=== PATIENT | male | born 1945 | race Caucasian/White ===

== ENCOUNTER 2021-12-16 06:36 | Outpatient (REF) | payer MEDICARE, SELFPAY ==
[2021-12-16 06:58] LABS: MANUAL DIFF FLAG NO
[2021-12-16 07:41] LABS: Basophils Percent Auto 0.4 % (0-2); Eosinophils Absolute Auto 0.3 X10*3/uL (0.0-0.4); Eosinophils Percent Auto 4.5 % (0-4); Hematocrit 40.9 % (42.0-52.0); Hemoglobin 14.1 g/dl (14.0-18.0); Imm Gran Abs Auto 0.03 X10*3/uL (0.00-0.03); Imm Gran Pct Auto 0.4 % (0.0-0.4); Lymphocytes Absolute Auto 2.1 X10*3/uL (1.2-4.9); Mean Corpuscular HGB Conc 34.5 g/dl (31.0-36.0); Mean Corpuscular Hemoglobin 32.3 pg (27.0-33.0); Mean Corpuscular Volume 93.6 fL (80.0-98.0); Mean Platelet Volume 9.8 fL (9.4-12.4); Monocytes Absolute Auto 0.7 X10*3/uL (0.1-1.2); Monocytes Percent Auto 9.2 % (2-11); Neutrophils Absolute Auto 4.5 x10*3/uL (2.0-8.3); Neutrophils Percent Auto 58.5 % (45-73); Platelet Count 220 X10*3/uL (160-400); Red Blood Count 4.37 X10*6/uL (4.60-5.80); Red Cell Distribution Width 13.2 % (11.0-16.0); White Blood Count 7.6 X10*3/uL (4.8-10.8)
[2021-12-16 08:24] LABS: Alanine Aminotransferase 15 U/L (0-40); Albumin Level 3.7 g/dL (3.5-5.0); Alkaline Phosphatase 68 U/L (39-117); Anion Gap 12 (12-20); Aspartate Amino Transferase 21 U/L (5-37); Bilirubin Total 0.6 mg/dL (0.0-1.0); Blood Urea Nitrogen 16 mg/dL (9-16); Calcium 9.2 mg/dL (8.4-10.2); Carbon Dioxide 28 mmol/L (22-29); Chloride 97 mmol/L (96-108); Cholesterol 157 mg/dL; Estimated Glomerular Filt Rate > 60; Glucose Fasting 109 mg/dL (60-99); HDL Cholesterol 68 mg/dL; LDL Cholesterol Calculated 81 mg/dl; Potassium 5.7 mmol/L (3.3-5.1); Sodium 131 mmol/L (135-145); Total Protein 6.7 g/dL (6.5-8.0); Triglycerides 41 mg/dL
[2021-12-16 08:36] LABS: Prostate Specific Antigen 0.78 ng/mL (<0.05-4.0)
== END 2021-12-16 06:37 | disposition home or self-care (01) ==
LOC: HO.LAB 06:36
PROVIDERS: PCP Internal Medicine; Visit Provider Internal Medicine
DX: Z12.5 Encounter for screening for malignant neoplasm of prostate (principal); J44.9 Chronic obstructive pulmonary disease, unspecified; I10 Essential (primary) hypertension; Z86.010 Personal history of colon polyps
CPT/HCPCS: 36415; 80053; 80061; 84153; 85025

== ENCOUNTER 2021-12-23 07:50 | Outpatient (REF) | payer MEDICARE, SELFPAY ==
[2021-12-23 09:10] LABS: Anion Gap 8 (12-20); Blood Urea Nitrogen 11 mg/dL (9-16); Calcium 8.9 mg/dL (8.4-10.2); Carbon Dioxide 30 mmol/L (22-29); Chloride 101 mmol/L (96-108); Estimated Glomerular Filt Rate > 60; Glucose Random 107 mg/dL (60-115); Potassium 5.2 mmol/L (3.3-5.1); Sodium 134 mmol/L (135-145)
== END 2021-12-23 07:51 | disposition home or self-care (01) ==
LOC: HO.LAB 07:50
PROVIDERS: PCP Internal Medicine; Visit Provider Internal Medicine
DX: E87.5 Hyperkalemia (principal)
CPT/HCPCS: 36415; 80048

== ENCOUNTER 2022-05-20 10:10 | Day surgery (SDC) | payer MEDICARE, SELFPAY ==
--- NOTE | 2022-05-19 12:37 | HO.ANESPROP2 ---
Documented by User: Barbara Petersen NP 05/19/22 12:38 HPI - Anesthesia Eval Consult details Narrative: 76yo M for Colonoscopy [facility] Past Medical History Medical History COPD (chronic obstructive pulmonary disease) HTN (hypertension) Surgical History Surgical History History of total left hip replacement Hx of appendectomy Hx of colonoscopy Social History Social History Patient Tobacco Use Status: Current everyday Tobacco user Tobacco use type: Cigarette Cigarettes Per Day: 10 Use of substances other than those prescribed or required for medical reasons: No Are you DNR?: No Advance Directives: No Advance Directives Information Provided: Yes Meds Allergies Allergy/AdvReac Type Severity Reaction Status Date / Time No Known Allergies Allergy Verified 05/20/22 10:55 [No Known Allergies*] Home Medications Medication Instructions Recorded Confirmed Last Taken Type lisinopril 5 mg tablet 5 mg PO DAILY 05/19/22 05/20/22 05/20/22 07:30 History Exam Exam Date and Time: May 19, 2022 1237 Pertinent Lab Results Pertinent Lab Results: Laboratory Tests 12/16/21 12/23/21 06:56 08:05 WBC 7.6 Hgb 14.1 Hct 40.9 L Plt Count 220 Sodium 134 L Potassium 5.2 H Chloride 101 Carbon Dioxide 30 H BUN 11 Creatinine 1.03 Assessment and Plan Assessment Anesthesia Assessment: Chart Reviewed Documented by User: Summer Aguilar MD 05/20/22 13:12 [facility] Past Medical History Medical History COPD (chronic obstructive pulmonary disease) HTN (hypertension) Surgical History Surgical History History of total left hip replacement Hx of appendectomy Hx of colonoscopy History of Problems with Anesthesia: No Social History Social History Patient Tobacco Use Status: Current everyday Tobacco user Tobacco use type: Cigarette Cigarettes Per Day: 10 Use of substances other than those prescribed or required for medical reasons: No Are you DNR?: No Advance Directives: No Advance Directives Information Provided: Yes Meds Allergies Allergy/AdvReac Type Severity Reaction Status Date / Time No Known Allergies Allergy Verified 05/20/22 10:55 [No Known Allergies*] Home Medications Medication Instructions Recorded Confirmed Last Taken Type lisinopril 5 mg tablet 5 mg PO DAILY 05/19/22 05/20/22 05/20/22 07:30 History Exam Airway Mallampati Class: III TM Dist: >3cm Neck ROM: Full Denture: Upper Loose/Missing/Broken Teeth: Yes, Upper and Lower Heart: RRR Lungs: distant bs but no wheezing Assessment and Plan Assessment Anesthesia Assessment: Anesthesia Plan Discussed Final Anesthetic Review History of Problems with Anesthesia: No NPO: Yes ASA Class: III Final Preanesthetic Review: Consent Obtained/Reviewed and Anes Risks/Benef Reviewed Patient Risk: Intermediate Procedure Risk: Low Anesthetic Plan Anesthetic Plan: MAC: Disposition: Standard PACU
[2022-05-20 10:50] VITALS: BMI 20.7
[2022-05-20 11:04] VITALS: BP 146/80; PULSE 118; RESP 20; TEMP 36.4; O2SAT 96
[2022-05-20] MEDS: Albuterol Sulfate (0.083%) 2.5 MG/3 ML VIAL.NEB INHALE (11:16)
[2022-05-20] MEDS: Lactated Ringers 1,000 ML 100 ML IVCONT (11:24)
[2022-05-20 13:07] VITALS: BP 99/52; PULSE 107; RESP 28; TEMP 36.8; O2SAT 94
[2022-05-20 13:22] VITALS: BP 109/52; PULSE 90; RESP 24; O2SAT 90
[2022-05-20 13:37] VITALS: BP 100/48; PULSE 95; RESP 24; O2SAT 94
[2022-05-20 13:48] VITALS: BP 105/52; PULSE 92; RESP 22; TEMP 36.8; O2SAT 95
== END 2022-05-20 14:38 | disposition home or self-care (01) ==
PROVIDERS: PCP Internal Medicine; Visit Provider Internal Medicine
PROC: 0DJD8ZZ Inspection of Lower Intestinal Tract, Via Natural or Artificial Opening Endoscopic (ICD-10-PCS; CPT 45378; principal; 2022-05-20 11:30)
DX: Z12.11 Encounter for screening for malignant neoplasm of colon (principal); Z53.09 Procedure and treatment not carried out because of other contraindication; J44.9 Chronic obstructive pulmonary disease, unspecified; I10 Essential (primary) hypertension; Z79.899 Other long term (current) drug therapy
CPT/HCPCS: G0121

== ENCOUNTER 2024-10-28 14:01 | Outpatient (AMB) | payer MEDICARE, SELFPAY ==
--- NOTE | 2024-10-28 14:09 | MHC.PC.OV ---
Vital Signs 10/28/24 14:39 Height 5 ft 10 in Weight 127 lb BMI 18.2 BP 122/74 Respiration 18 Pulse 88 Temp 97.3 F Temp Source Temporal Artery Scan Intake Visit Reasons: Routine [employer] Required: No Accompanied by: Spouse Allergies No Known Allergies [No Known Allergies*] Allergy (Verified 10/28/24 14:44) Tobacco use date assessed: 10/28/24 Fall risk assessment: No Falls in past year Last assessed Fall Risk: 10/28/24 Dental Screening Dental Screen Date: 10/28/24 Did you have a dental visit in the last 12 months?: No Did you have a dental problem in the last 6 months where you did not have access to dental care?: No Was dental information given to patient?: No (pt has dentures) [facility] Medical History (Updated 10/28/24 @ 15:06 by Alejandro Mcclendon MD) Essential hypertension COPD (chronic obstructive pulmonary disease) HTN (hypertension) Surgical History Hx of colonoscopy Hx of appendectomy History of total left hip replacement Family History (Updated 10/28/24 @ 14:10 by SEGUN Stevenson) Mother No problems noted. Father No problems noted. Social History (Updated 10/28/24 @ 14:10 by SEGUN Stevenson) Housing: House Alcohol intake: current Alcohol intake frequency: does not drink Patient Tobacco Use Status: Current everyday Tobacco user Tobacco use type: Cigarette Cigarettes Per Day: 10 e-Cigarette/Vaping Use: Currently Using service: No Current occupational status: retired Cognitive needs: No Hearing needs: No Vision needs: Yes (reading glasses) Questionnaire PHQ-9 Over the last 2 weeks, how often have you been bothered by any of the following problems? 1. Little interest or pleasure in doing things: not at all 2. Feeling down, depressed, or hopeless: not at all 3. Trouble falling or staying asleep, or sleeping too much: not at all 4. Feeling tired or having little energy: not at all 5. Poor appetite or overeating: not at all 6. Feeling bad about yourself - or that you are a failure or have let yourself or your family down: not at all 7. Trouble concentrating on things, such as reading the newspaper or watching television: not at all 8. Moving or speaking so slowly that other people could have noticed. Or the opposite - being so fidgety or restless that you have been moving around a lot more than usual: not at all 9. Thoughts that you would be better off or of hurting yourself in some way: not at all Total score: 0 Source: Developed by Drs. Shabbir Kraft, Shalini Butler, Shekhar Snyder and colleagues, with an educational veronica from [employer]. Thrive Questionnaire Date Thrive assessed: 10/28/24 I am a: Patient What is your living situation today?: I have a steady place to live Within the past 12 months, did the food you bought not last and you didn't have the money to get more?: Never true Within the past 12 months, did you worry whether your food would run out before you got money to buy more?: Never true Do you have trouble paying for medicines?: No Do you have trouble getting transportation to medical appointments?: No Do you have trouble paying your heating and electricity bill?: No Do you have trouble taking care of your child, family member or friend?: No Do you have trouble with day-to-day activities such as bathing, preparing meals, shopping, managing finances, etc.?: No Are you currently unemployed and looking for a job?: No Are you interested in more education?: No Please select the resources that you would like help with: None THRIVE Score: 0 AUDIT C Alcohol Use Questionnaire (AUDIT-C) 1. How often do you have a drink containing alcohol?: 4 or more times a week 2. How many drinks containing alcohol do you have on a typical day when you are drinking?: 1 or 2 3. How often do you have six or more drinks on one occasion?: Never Total Score: 4 ALONZO-7 AMB Questionnaire ALONZO-7 Date ALONZO - 7 assessed: 10/28/24 Feeling nervous, anxious, or on edge: 0 = Not at all Not being able to stop or control worryin = Not at all Worrying too much about different things: 0 = Not at all Trouble relaxin = Not at all Being so restless that it is hard to sit still: 0 = Not at all Becoming easily annoyed or irritable: 0 = Not at all Feeling afraid as if something awful might happen: 0 = Not at all Total ALONZO-7 score (0-4 normal; 5-9 mild; 10-14 moderate; 15-21 severe): 0 Source: Developed by Drs. Shabbir Kraft, Shalini Butler, Shekhar Snyder and colleagues, with an educational veronica from [employer]. Physical exam (Primary Care) Vital Signs: Last Vital Signs Temp 97.3 F 10/28/24 14:39 Pulse 88 10/28/24 14:39 Resp 18 10/28/24 14:39 BP 122/74 10/28/24 14:39 BMI result Body Mass Index 18.2 Tobacco/Smoking Status: Tobacco use Status Tobacco use date assessed 10/28/24 10/28/24 14:10 Patient Tobacco Use Status Current everyday Tobacco 10/28/24 14:10 Tobacco use type Cigarette 10/28/24 14:10 e-Cigarette/Vaping Use Currently Using 10/28/24 14:54 PHQ-9: PHQ-9 Score PHQ-9: Total score 0 10/28/24 14:54 Thrive Assessment: Date of Thrive Assessment Date Thrive assessed 10/28/24 10/28/24 14:10 Coding Level of Care Code New Pt Level 4 (15726) Complex EM visit Add On G2211 Diagnoses Essential hypertension I10 Assessment & Plan Assessment & Plan (1) Essential hypertension: Code(s): I10 - Essential (primary) hypertension Category: Medical Plan: BW ordered. BP in range. Continue meds at same dosage Plan History of Present Illness The patient is an 79-year-old male presenting with health management issues, chiefly focused on hypertension and chronic respiratory problems related to smoking. He requires a medication refill for lisinopril, used for managing his hypertension. His respiratory difficulties have been exacerbated over time, correlating with significant smoking history and current calculated cessation improving his coughing. Weight loss and muscle weakness are noted, indicating potential progression of an underlying chronic pulmonary condition. Additionally, visual impairment due to cataracts has compounded his difficulties. His general health is impacted by functional decline, with difficulty concentrating observed as transient, suggested to arise from general fatigue. Despite potential cognitive fluctuations, the patient is retaining adequate appetite and sleep patterns. Remarkably, a recent episode involved disorientated arousal during sleep, although swiftly resolving, highlighted concerns about cognitive function. The patient remains currently independent and desires to maintain autonomy. Social History - Employment history: Former tractor-coach tour driver, enjoying travel. - Cigarette Smoking: Long-term history; recent cessation attempt over the past week and a half. - Family status: , recently visited by son. - Nutrition: Reduced intake; increased consumption of soft foods; use of protein shakes. - Functional status: Previously independent with driving; currently self-limited due to visual issues. Review of Systems - Ocular: Reports cataracts. - Respiratory: Reports recent cessation of smoking; cough diminished. - Neurologic: Denies significant confusion or sleep disturbances. - General: Reports weight loss, reduced muscle tone, and general weakness. Physical Exam General: Appearance normal, both eyes and all related structures, noted cataract in one eye Nutritional Appearance: Weight loss and decreased muscle tone observed Orientation/consciousness: Patient oriented x3, occasional confusion noted Limitations: No limitations, but patient has been weaker recently Head: Normal to inspection Neck: Normal visual inspection Chest: Normal palpation of entire chest wall Respiratory: Normal respiratory effort, but history of heavy smoking and recent cessation Neurology: Patient oriented x3, occasional confusion noted Results Plan Refill of lisinopril for hypertension management has been arranged, and efforts to cease smoking are encouraged with observed benefits in respiratory symptom reduction. Scheduled blood work will aid in evaluating general health, particularly given weight loss and muscle weakness. Referral for ear wax removal is advised, with continued observation of cataracts under current ophthalmologic guidance. Scheduled follow-up in four weeks will allow assessment of treatment efficacy and potential further intervention for these chronic conditions. Patient was informed and verbally consented to the use of an ambient scribe for clinic note documentation during this visit. Discussion Notes I discussed with the patient the ongoing management of his hypertension and COPD, emphasizing the importance of medication adherence and hypertension control. The patient was encouraged to continue his recent smoking cessation, noting an improvement in respiratory symptoms and a decrease in coughing. The necessity of blood work was outlined to assess general health and to monitor unexplained weight loss and muscle deterioration. I advised the patient on managing his ear concern and potential future approach for cataract surgery post-stabilization of respiratory symptoms. Follow-up arrangements were explained for ongoing management evaluation. Patient Instructions - Refill and continue taking lisinopril as prescribed. - Maintain smoking cessation to improve breathing and reduce coughing. - Attend scheduled blood work to check overall health. - Visit the walk-in clinic for ear wax removal as needed. - Follow up in four weeks for evaluation of blood work and health status. - Monitor any changes in symptoms, especially visual or respiratory, and return sooner if concerns arise.
[2024-10-28 14:39] VITALS: BP 122/74; PULSE 88; RESP 18; TEMP 36.3; BMI 18.2
== END 2024-10-28 15:06 | disposition home or self-care (01) ==
LOC: HO.HMCHD 14:01
PROVIDERS: PCP Internal Medicine; Visit Provider Internal Medicine
DX: I10 Essential (primary) hypertension (principal)

== ENCOUNTER → 2024-10-28 14:01 | Outpatient (BNVA) | payer MEDICARE, SELFPAY | PROVIDERS: PCP Internal Medicine; Visit Provider Internal Medicine | DX: I10 Essential (primary) hypertension (principal) | CPT/HCPCS: 99202 ==

== ENCOUNTER 2024-11-08 14:47 | Outpatient (REF) | payer MEDICARE, SELFPAY ==
--- OUTSIDE RECORDS SUMMARY | 2024-11-08 16:16 | XMS_ITS | Patient Health Record ---
Author Organization [facility] Address [address] [place] [address] Care Team Providers Care Nuclear Reactor Technician Name Role Phone Benjamin Real MD Primary Care Provider Shabbir Le Unavailable [phone] Allergies Allergen (clinical drug ingredient) Drug/Non Drug Allergy documented on EMR Reaction Allergy Type Onset Date Status season (uncoded) Unknown Allergy Act lang Reason For Referral No Information Medications Medication SIG (Take, Route, Fr equency, Duration) Notes Start Date End Date Status Lisinopril 5 MG 1 tablet Orally Once a day for 30 day(s) Active ZyrTEC 10 MG 1 tablet Orally Once a day for 30 day(s) Active Immunizations Vaccine Route Administration Date Status Comme nts Influenza Unknown 03/23/2022 Administered Social History Tobacco Use: Social History Observation Description Date Details (start date - stop date) Current Smoker NA - NA Tobacco Use/Smoking Question Answer Notes Patient is a current smoker Alcohol Screen Question Answer Notes Did you have a drink contain ing alcohol in the past year? Yes How often did you have a dri nk containing alcohol in the past year? 4 or more times a week (4 points) How many drinks did you have on a typical day when you were drinking in the past year? 5 or 6 drinks (2 points) How often did you have 6 or more drinks on one occasion in the past year? Never (0 point) Points 6 Interpretation Positive Section Notes: Smokes 1 pack over 2 or 3 da ys; 4-5 beers QD Problems Problem Type SNOMED Code ICD Code Onset Dates Problem Status W/U Status Risk Notes Problem Colon cancer screening (906349123) Colon cancer screening (Z12.11) Active confirmed Problem Malignant neoplasm of colon (866517274) Malignant neoplasm of colon, unspecified (C18.9) Active confirmed Problem Preprocedural examination (165781614124479) Preprocedural examination (Z01.818) Active confirmed Problem History of polyp of colon (638300128) History of colon polyps (Z86.010) Active confirmed Plan Of Treatment Future Test Test Name Order Date COLONOSCOPY 04/06/2022 Insurance Providers Payer Name Payer Address Payer Phone Subscriber Number Group Number Insured Name Patient Relationship to Insured Coverage Start Date Coverage End Date MEDICARE OF [place] [address] [place] [address] [id number] AMIRAH JOSEPH JR Self - patient is the insured [employer] ATT[employer] CLAIMS [address] [place] [phone] [id number] AMIRAH JOSEPH JR Self - patient is the insured Medical (General) History Medical History History ICD Code HTN Multiple colonoscopies with Dr. Arroyo beginning in June of 2012, at which time tubular adenomas were found, including a polypoid lesion in the distal sigmoid colon. 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 He describes having gone to [facility] for a second opinion at that time and it was decided that they would hold off on any surgery in regard to the malignant polyp. The area of the malignant polyp in the distal sigmoid colon was marked with submucosal ink. A followup colonoscopy in January of 2018 revealed some tubular adenomas that were removed as well. Denies MA,DM,CVA,renal disease COPD Surgical History Surgery Date(Month/Year) Left hip replacement x 2-most recent one approx. 2019 [facility] 2019 [facility]
[2024-11-08 17:53] LABS: Estimated Average Glucose 123 mg/dL; Hemoglobin A1C 131.6397 umol/L; Hemoglobin A1c % 5.9 % (<6.0); Total Hemoglobin (HGBA1C) 3222.7614 umol/L
[2024-11-08 17:56] LABS: Alanine Aminotransferase 33 U/L (0-40); Albumin Level 3.2 g/dL (3.5-5.0); Alkaline Phosphatase 75 U/L (39-117); Anion Gap 13 (12-20); Aspartate Amino Transferase 29 U/L (5-37); Basophils Percent Auto 0.2 % (0-2); Bilirubin Total 0.2 mg/dL (0.0-1.0); Blood Urea Nitrogen 24 mg/dL (9-16); Calcium 9.5 mg/dL (8.4-10.2); Carbon Dioxide 28 mmol/L (22-29); Chloride 98 mmol/L (96-108); Cholesterol 134 mg/dL (<200); Eosinophils Absolute Auto 0.4 X10*3/uL (0.0-0.4); Eosinophils Percent Auto 2.2 % (0-4); Estimated Glomerular Filt Rate > 60; Glucose Random 101 mg/dL (60-115); HDL Cholesterol 39 mg/dL (>40); Hematocrit 37.2 % (42.0-52.0); Hemoglobin 12.2 g/dl (14.0-18.0); Imm Gran Abs Auto 0.08 X10*3/uL (0.00-0.03); Imm Gran Pct Auto 0.5 % (0.0-0.4); LDL Cholesterol Calculated 80 mg/dL (<100); Lymphocytes Absolute Auto 1.5 X10*3/uL (1.2-4.9); Lymphocytes Percent Auto 9.4 % (20-40); MANUAL DIFF FLAG SCAN; Mean Corpuscular HGB Conc 32.8 g/dl (31.0-36.0); Mean Corpuscular Hemoglobin 29.3 pg (27.0-33.0); Mean Corpuscular Volume 89.2 fL (80.0-98.0); Mean Platelet Volume 9.5 fL (9.4-12.4); Monocytes Absolute Auto 1.8 X10*3/uL (0.1-1.2); Monocytes Percent Auto 11.1 % (2-11); Neutrophils Absolute Auto 12.3 x10*3/uL (2.0-8.3); Neutrophils Percent Auto 76.6 % (45-73); Platelet Count 482 X10*3/uL (160-400); Potassium 5.3 mmol/L (3.3-5.1); Red Blood Count 4.17 X10*6/uL (4.60-5.80); Red Cell Distribution Width 13.4 % (11.0-16.0); SCAN SMEAR FLAG 1; Sodium 134 mmol/L (135-145); Total Protein 7.4 g/dL (6.5-8.0); Triglycerides 77 mg/dL (<150); White Blood Count 16.1 X10*3/uL (4.8-10.8)
[2024-11-08 18:34] LABS: SLIDE REVIEW VERIFIED
== END 2024-11-08 14:48 | disposition home or self-care (01) ==
LOC: HO.WFDLDS 14:47
PROVIDERS: Visit Provider Internal Medicine
DX: I10 Essential (primary) hypertension (principal)
CPT/HCPCS: 36415; 80053; 80061; 83036; 85025

== ENCOUNTER 2024-12-09 09:10 | Outpatient (AMB) | payer MEDICARE, SELFPAY ==
--- NOTE | 2024-12-09 09:13 | A.OFFPC_ITS ---
Vital Signs 12/09/24 09:17 Height 5 ft 10 in Weight 58.06 kg BMI 18.4 BP 118/64 Respiration 24 H Pulse 104 H Pulse Source Pulse Oximeter Temp 97.6 F Temp Source Temporal Artery Scan Pulse Oximetry (%) 94 Oxygen Delivery Method Room Air Intake Visit Reasons: Routine Senior Billing Consultant Required: No Accompanied by: Spouse Allergies No Known Allergies [No Known Allergies*] Allergy (Verified 12/09/24 09:25) Medication List - Last Reconciled 12/09/24 by CHAPINCITO Booth cetirizine (Zyrtec) 10 mg PO DAILY PRN cholecalciferol (vitamin D3) 50 mcg PO DAILY phosphatidylserine mg PO Tobacco use date assessed: 12/09/24 Fall risk assessment: No Falls in past year Last assessed Fall Risk: 12/09/24 Dental Screening Dental Screen Date: 12/09/24 Did you have a dental visit in the last 12 months?: Yes Did you have a dental problem in the last 6 months where you did not have access to dental care?: No Was dental information given to patient?: Patient has dentist HPI HPI Comments History of Present Illness Details History of Present Illness The patient is an 79-year-old male with history of COPD, hypertension, hyperlipidemia presenting to the office for routine follow-up. He was seen in the office 1 month ago and was noted to have some slight worsening of respirator y difficulties over time. He now comes in with progressively worsening dyspnea, both at rest and with exertion. He did have an upper respiratory infection about 2 weeks ago with low-grade fever but that has resolved. He does have chronic productive cough that he states has worsened. The patient, who quit smoking eight weeks ago, has experienced progressive breathlessness with episodes requiring leaning forward for comfort. Observations of weight loss from 155 pounds to 126 pounds since 2021 have been linked to decreased appetite and physical decline. His has also reported swelling and discoloration on the feet indicate possible fluid retention, but no known history of heart failure. Recent blood tests reveal an elevated white blood cell count, etiology unclear, and hyperkalemia, possibly linked to lisinopril. Review of Systems - Respiratory: Reports worsening dyspnea and chronic cough. - General: Reports significant weight lo ss and recent upper respiratory symptoms. - Cardiovascular: Reports recent swellin g and discoloration in the feet. - Immunologic: Denies recent high fever. - Other systems: Denies acute pain or di scomfort. Vital Signs - Oxygenation: 96% (clinic measurement) - Weight: 126 pounds (current) - RR 24 Physical Exam Constitutional: Awake and alert, cachective, Heart: RRR, S1S2, no murmurs, +BLE edema, +JVD, 1+ pedal pulses b/l Lungs: Diminished bilaterally, no wheezing or crackles. Increased WOB with Tripoding, pursed lips breathing Extremities: No swelling, no calf tenderness Skin: Warm. Feet cool but +pulses Neuro: Alert and oriented x 3 Assessment and Plan 1. Respiratory distress Patient noted to be tripoding with increased work of breathing. Patient is advised to present to the ED for further evaluation and management. Expect call placed. Possible COPD exacerbation versus new onset heart failure 2. Chronic Obstructive Pulmonary Disease (COPD) The patient's COPD shows progression. Despite adequate oxygenation levels through clinic assessments, increased breathlessness necessitates further evaluation. Referral for imaging studies and possible introduction of oxygen therapy contingent on ER findings is planned. 3. Nicotine Dependence, In Remission Commendable cessation efforts have been noted following eight weeks of smoking abstinence. Sustained remission has health benefits; ongoing support is necessary. 4. Hyperkalemia Due to heightened potassium levels likely affected by lisinopril, cessation of this medication is warranted. Dietary management is advised to balance nutrition and restrict excessive potassium intake. Discussion Notes In discussing the management for the patient's COPD, the plan includes further imaging studies to ascertain deterioration extent. I informed the patient about their risk of developing heart failure as evidenced by current symptoms of swelling and discoloration of the extremities. Discontinuation of lisinopril has been planned due to associated hyperkalemia, with dietary discussions focused around manageable potassium intake levels. MOLST form reviewed and completed. Approaching ER for comprehensive treatment is seen as the optimal course of action. Patient Instructions - Head to the ER promptly for further as sessment and imaging. - Discontinue lisinopril medication imme diately due to the high potassium level. - Gradually limit high-potassium foods, maintaining careful dietary adjustments. - Monitor breathing and comfort position s, especially while experiencing shortness of breath. - Observe any recurrent upper respirator y symptoms, seeking medical advice if needed. - Continue to abstain from smoking to vuong pport pulmonary health. - Keep communication open about advancin g symptoms, particularly related to swelling or breathing difficulties. - Maintain regular follow-up appointment s and future evaluations as necessary. [facility] Medical History (Updated 12/09/24 @ 09:54 by CHAPINCITO Booth) Prediabetes Essential hypertension COPD (chronic obstructive pulmonary disease) HTN (hypertension) Surgical History Hx of colonoscopy (~01/22/18) Hx of appendectomy History of total left hip replacement Family History Mother No problems noted. Father No problems noted. Social History Housing: House Alcohol intake: current Alcohol intake frequency: does not drink Patient Tobacco Use Status: Former Tobacco user e-Cigarette/Vaping Use: Currently Using service: No Current occupational status: retired Cognitive needs: No Hearing needs: No Vision needs: Yes (reading glasses) Questionnaire PHQ-9 Over the last 2 weeks, how often have you been bothered by any of the following problems? 1. Little interest or pleasure in doing things: not at all 2. Feeling down, depressed, or hopeless: not at all 3. Trouble falling or staying asleep, or sleeping too much: not at all 4. Feeling tired or having little energy: not at all 5. Poor appetite or overeating: not at all 6. Feeling bad about yourself - or that you are a failure or have let yourself or your family down: not at all 7. Trouble concentrating on things, such as reading the newspaper or watching television: not at all 8. Moving or speaking so slowly that other people could have noticed. Or the opposite - being so fidgety or restless that you have been moving around a lot more than usual: not at all 9. Thoughts that you would be better off or of hurting yourself in some way: not at all Total score: 0 Source: Developed by Drs. Shabbir Kraft, Shalini Butler, Shekhar Snyder and colleagues, with an educational veronica from [employer]. Thrive Questionnaire Date Thrive assessed: 12/09/24 I am a: Patient What is your living situation today?: I have a steady place to live Within the past 12 months, did the food you bought not last and you didn't have the money to get more?: Never true Within the past 12 months, did you worry whether your food would run out before you got money to buy more?: Never true Do you have trouble paying for medicines?: No Do you have trouble getting transportation to medical appointments?: No Do you have trouble paying your heating and electricity bill?: No Do you have trouble taking care of your child, family member or friend?: No Do you have trouble with day-to-day activities such as bathing, preparing meals, shopping, managing finances, etc.?: No Are you currently unemployed and looking for a job?: No Are you interested in more education?: No Please select the resources that you would like help with: None THRIVE Score: 0 AUDIT C Alcohol Use Questionnaire (AUDIT-C) 1. How often do you have a drink containing alcohol?: Monthly or less Total Score: 1 ALONZO-7 AMB Questionnaire ALONZO-7 Date ALONZO - 7 assessed: 12/09/24 Feeling nervous, anxious, or on edge: 0 = Not at all Not being able to stop or control worryin = Not at all Worrying too much about different things: 0 = Not at all Trouble relaxin = Not at all Being so restless that it is hard to sit still: 0 = Not at all Becoming easily annoyed or irritable: 0 = Not at all Feeling afraid as if something awful might happen: 0 = Not at all Total ALONZO-7 score (0-4 normal; 5-9 mild; 10-14 moderate; 15-21 severe): 0 Source: Developed by Drs. Shabbir Kraft, Shalini Butler, Shekhar Snyder and colleagues, with an educational veronica from [employer]. Physical exam (Primary Care) Vital Signs: Last Vital Signs Temp 97.6 F 12/09/24 09:17 Pulse 104 H 12/09/24 09:17 Resp 24 H 12/09/24 09:17 BP 118/64 12/09/24 09:17 Pulse Ox 94 12/09/24 09:17 Oxygen Delivery Method Room Air 12/09/24 09:17 BMI result Body Mass Index 18.4 Tobacco/Smoking Status: Tobacco use Status Tobacco use date assessed 12/09/24 12/09/24 09:17 Patient Tobacco Use Status Former Tobacco user 12/09/24 09:30 Tobacco use type 12/09/24 09:30 e-Cigarette/Vaping Use Currently Using 12/09/24 09:17 PHQ-9: PHQ-9 Score PHQ-9: Total score 0 12/09/24 10:12 Thrive Assessment: Date of Thrive Assessment Date Thrive assessed 12/09/24 12/09/24 09:17 Coding Level of Care Code Tele Est Pt Level 4 (88407) Complex EM visit Add On G2211 Diagnoses Respiratory distress R06.03 HLD (hyperlipidemia) E78.5 COPD (chronic obstructive pulmonary disease) J44.9 Essential hypertension I10 Leukocytosis D72.829 Hyperkalemia E87.5 Assessment & Plan Assessment & Plan (1) Respiratory distress: Code(s): R06.03 - Acute respiratory distress Category: Medical Plan: Possible new onset HF based on symptoms and exam findings. COPD exacerbation possible but no wheezing though lungs diminished. ER follow-up advised, expect call placed. Ambulance declined, pt's will drive him to the ER (2) HLD (hyperlipidemia): Code(s): E78.5 - Hyperlipidemia, unspecified Category: Medical Plan: Cholesterol levels at goal. Continue low-fat diet (3) COPD (chronic obstructive pulmonary disease): Code(s): J44.9 - Chronic obstructive pulmonary disease, unspecified Category: Medical Plan: Progressive. Given respiratory distress, patient advised to present to the ED. Ambulance ride declined (4) Essential hypertension: Code(s): I10 - Essential (primary) hypertension Category: Medical Plan: Blood pressure reasonably controlled. Discontinue lisinopril 5mg given persistent hyperkalemia and well controlled BP. Recheck BMP and BP on ER/hospital follow up (5) Leukocytosis: Code(s): D72.829 - Elevated white blood cell count, unspecified Category: Medical Plan: Etiology unclear. Pending further work up in the ED for above. Will consider further evaluation as indicated (6) Hyperkalemia: Code(s): E87.5 - Hyperkalemia Category: Medical Plan: As above Plan Present to the ED for evaluation of respiratory distress. Follow up following dc from ED/hospital Orders: Orders Basic Metabolic Panel Today E87.5 - Hyperkalemia Complete Blood Count Auto Diff Today E87.5 - Hyperkalemia Medications: Discontinued lisinopril Discontinued Reason: Doctor's Order 5 mg PO DAILY 90 tabs 1RF
[2024-12-09 09:17] VITALS: BP 118/64; PULSE 104; RESP 24; TEMP 36.4; O2SAT 94; BMI 18.4
--- OUTSIDE RECORDS SUMMARY | 2024-12-09 09:51 | XMS_ITS | Patient Health Record ---
Author Organization [facility] Address [address] [place] [address] Care Team Providers Care Bareback Rider Name Role Phone Benjamin Real MD Primary Care Provider Shabbir Le Unavailable [phone] Allergies Allergen (clinical drug ingredient) Drug/Non Drug [...] Status Risk Notes Problem Colon cancer screening (980525201) Colon cancer screening (Z12.11) Active confirmed Problem Malignant neoplasm of colon (106574825) Malignant neoplasm of colon, unspecified (C18.9) Active confirmed Problem Preprocedural examination (005323525238259) Preprocedural examination (Z01.818) Active confirmed Problem History of polyp of colon (157656214) History of colon polyps (Z86.010) Active confirmed Plan Of Treatment Future Test Test Name Order Date COLONOSCOPY 04/06/2022 Insurance Providers Payer Name Payer Address Payer Phone Subscriber Number Group Number Insured Name Patient Relationship to Insured Coverage Start Date Coverage End Date MEDICARE OF [place] [address] [place] [address] [id number] AMIRAH JOSEPH JR Self - patient is the insured [employer] ATT[employer] CLAIMS [address] [place] [address] [phone] [id number] AMIRAH JOSEPH JR Self - patient is [...] submucosal invasion. He describes having gone to [facility] for a second opinion at that time and it was decided that they would hold off on any surgery in regard to the malignant polyp. The area of the malignant polyp in the distal sigmoid colon was marked with submucosal ink. A followup colonoscopy in January of 2018 revealed some tubular adenomas that were removed as well. Denies CT,DM,CVA,renal disease COPD Surgical History Surgery Date(Month/Year) Left hip replacement x 2-most recent one approx. 2019 or 2019 App[facility]
== END 2024-12-09 10:00 | disposition home or self-care (01) ==
LOC: HO.HMCHD 09:11
PROVIDERS: PCP Internal Medicine; Visit Provider Physician Assistant
DX: R06.03 Acute respiratory distress (principal); E78.5 Hyperlipidemia, unspecified; J44.9 Chronic obstructive pulmonary disease, unspecified; I10 Essential (primary) hypertension; D72.829 Elevated white blood cell count, unspecified; E87.5 Hyperkalemia

== ENCOUNTER → 2024-12-09 09:10 | Outpatient (BNVA) | payer MEDICARE, SELFPAY | PROVIDERS: PCP Internal Medicine; Visit Provider Physician Assistant | DX: Z13.89 Encounter for screening for other disorder (principal) | CPT/HCPCS: 99212 ==

== ENCOUNTER 2024-12-09 10:15 | Inpatient (IN) | payer MEDICARE, SELFPAY ==
[2024-12-09] VITALS (12 sets, daily range): BP systolic 100–120; BP diastolic 52–95; PULSE 102–112; RESP 20–28; TEMP 36.4–37.3; O2SAT 91–98; BMI 17.6
--- NOTE | ~2024-12-09 | XR_ITS ---
EXAMINATION: XR CHEST CLINICAL INFORMATION: SOB COMPARISON: March 19, 2016. TECHNIQUE: 2 views of the chest were obtained. FINDINGS: Hyperinflated lungs. Flattening diaphragm and increased AP diameter of the vertex. Pulmonary reticular nodular pattern Patchy opacities in the right upper hemithorax and the left perihilar region. Blunting of the posterior costophrenic angles, bilaterally. No pneumothorax. Cardiomediastinal silhouette size is small. Calcifications throughout the thoracic aorta. Kyphotic deformity and multilevel thoracic spondylosis. Osteopenia versus osteoporosis. XR/XR chest 2V IMPRESSION: COPD emphysematous type changes with superimposed acute airspace disease. Recommend follow-up until resolution since underlying malignancy cannot be excluded. Electronically signed by: Liam Mederos MD 12/09/2024 10:51 AM EDT
--- NOTE | ~2024-12-09 | CT_ITS ---
EXAMINATION: CT ANGIOGRAM CHEST CLINICAL INFORMATION: Dyspnea, weight loss, hypoxia. COMPARISON: Most recently 04/19/2013. TECHNIQUE: Multiple axial images were obtained through the chest after the administration of 50 mL of Omnipaque 350 intravenous contrast. Extensive vascular post-processing including two-dimensional and three-dimensional reformatted images were created and reviewed on an independent workstation. This CT examination was performed using dose optimization techniques as appropriate, variously including the following: *Automated exposure control *Adjustment of mA and/or kV according to patient size (this includes techniques or standardized protocols for targeted exams where dose is matched to indication/reason for exam; i.e. extremities or head) *Use of iterative reconstruction technique FINDINGS: VASCULAR: Study quality is adequate. There is respiratory motion degradation, limiting evaluation of subsegmental pulmonary arteries. There is no evidence of pulmonary emboli. Main pulmonary artery has a normal caliber. The aorta is nonaneurysmal, and demonstrates severe calcific and soft atheromatous plaque, predominantly in the descending aorta, and upper abdominal aorta. The great vessels demonstrate an approximate 60% stenosis of the origin of the left subclavian artery (series 7, image 22) no additional high-grade stenosis of the imaged. Vessels. LUNGS: There is moderate centrilobular emphysema present. There is an irregular soft tissue mass in the superior right hilum, invading the right suprahilar mediastinum, encasing the right upper lobe segmental pulmonary arteries and pulmonary veins. There is no fat plane abutting the right mediastinum and this mass, with soft tissue opacity in the subcarinal region, precarinal region, and right AP window region. This mass is very difficult to measure due to its irregular shape, however grossly measures 4.7 x 3.3 x 7.1 cm (AP, TRV, CC). There are numerous irregular nodular opacities throughout the right upper lobe, with associated interlobular septal thickening. 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 There is smooth interlobular septal thickening seen throughout the aerated left upper lobe, with a consolidative retractile appearing opacity in the lingular segment, measuring approximately 3.7 x 4.8 x 3.9 CM, (AP, TRV, CC) allowing for irregular shape and spiculated type appearance. There is diffuse small airway thickening throughout both lungs. There are no pleural effusions. There is no pneumothorax. MEDIASTINUM: Invasive irregular right suprahilar mediastinal mass as above. The left thyroid lobe cannot be visualized. The right thyroid lobe is diminutive. There is a 1.3 cm prevascular lymph node (series 5, image 19). There is a 1.3 x 2.4 cm AP window lymph node noted (series 5, image 21). Abnormal soft tissue attenuation throughout the mediastinal fat planes including the subcarinal region, where there is a 1.7 x 3.3 cm probable lymph node (series 5, image 28). The heart size is normal. No pericardial effusion. No right heart strain pattern. No reflux of contrast into the IVC. Esophagus appears normal. Portions are inseparable from the infiltrating appearing mass in the superior one third. AXILLA/CHEST WALL: Cachexia. No definite abnormal lymph nodes or mass. UPPER ABDOMEN: Limited evaluation due to contrast timing. Extensive atheromatous disease of the aorta which is ectatic. There is a simple cyst in the anterior right kidney measuring 3.8 cm. Evaluation of liver is limited although no gross lesion is seen. Gallbladder appears normal. Remainder of the imaged upper abdominal contents are unremarkable allowing for limitations of contrast timing and cachexia. OSSEOUS STRUCTURES: Mildly exaggerated thoracic kyphosis with associated mild degenerative changes. No suspicious lytic or blastic bone lesions are identified. CT/CT angio chest PE protocol IMPRESSION: 1. No evidence of pulmonary embolism or acute aortic syndrome. 2. There is moderate to advanced centrilobular emphysema. 3. Irregular infiltrating appearing soft tissue mass centered in the right suprahilar region, grossly measuring 4.7 x 3.3 x 7.1 cm, with right superior mediastinal invasion, and invasion of the right upper lobe. Malignancy is highly suspected. 4. There are numerous irregular stellate nodular opacities (likely metastases) throughout the right upper lobe. There is smooth interlobular septal thickening suggesting either unilateral pulmonary edema or lymphangitic carcinomatosis. 5. There is an irregular retractile appearing stellate mass in the lingular segment approximately 3.7 x 4.8 x 3.9 cm, also associated with smooth interlobular septal thickening. Malignancy suggested. 6. There is diffuse thickening of the small airways present. 7. There are abnormal lymph nodes in the mediastinum as detailed. 8. Patient is cachectic. 9. There is no pleural effusion. Electronically signed by: Charlie Bustamante MD 12/09/2024 03:28 PM EDT RP
--- NOTE | 2024-12-09 10:24 | ED.SOB ---
HPI - SOB/Dyspnea General Chief Complaint: Dyspnea Stated Complaint: diff breathing low oxygen Time Seen by Provider: 12/09/24 11:15 Source: patient and family Mode of arrival: ambulatory Limitations: no limitations History of Present Illness ED Provider: ANNAMARIE ORANTES Narrative: 79 yo male with PMH of smoker my entire life until 8 weeks ago but has never had inhalers or seen pulmonology, HTN but no longer on medications he is here with his who reports a year of muscle loss and weight loss but unclear how much as well as 2 weeks of cough with yellow sputum, low grade fevers, increased trouble breathing and loose stools. His sister was ill as well. No recent travel. He couldn't take his breathing today and came in due to that. MD elicited complaint: shortness of breath and cough Onset (ago): week(s) (2) Context: recent illness and occurred during exertion Timing: progressively worsening Severity: moderate Exacerbating factors: lying flat, exertion, movement and coughing Relieving factors: oxygen, rest and upright position Associated symptoms: cough, wheezing, sputum production and chest congestion Treatment prior to arrival: none Related Data Home Medications ?Medication ?Instructions ?Recorded ?Confirmed cetirizine 10 mg capsule (Zyrtec) 10 mg PO DAILY PRN 10/28/24 12/09/24 cholecalciferol (vitamin D3) 50 50 mcg PO DAILY 10/28/24 12/09/24 mcg (2,000 unit) tablet phosphatidylserine 100 mg capsule mg PO 10/28/24 12/09/24 Allergies Allergy/AdvReac Type Severity Reaction Status Date / Time No Known Allergies Allergy Verified 12/09/24 10:32 [No Known Allergies*] Review of Systems Review of Systems: Constitutional : No Fever, pos Chills, pos fatigue ENT/Mouth : No Hoarseness, No sore throat, No Rhinorrhea Eyes: No Redness, No Discharge, No Vision Changes Cardiovascular : No Chest Pain, positive SOB, positive Dyspnea on Exertion, No Edema Respiratory : positive Cough, pos Sputum, positive Wheezing, Gastrointestinal : No Nausea, No Vomiting, No Diarrhea, No abdominal Pain Genitourinary : No Dysuria, No Hematuria Musculoskeletal : No joint pain, No Myalgias Skin : No rash Neuro : pos Weakness, No Numbness, No Headache Psych : No anxiety, depression Heme/Lymph: No Bruising, No Bleeding Endocrine : No Polyuria, No Polydipsia All other systems reviewed and are negative [facility] Past Medical History Medical History (Updated 12/09/24 @ 12:04 by Dennise Matt DO) Prediabetes Essential hypertension COPD (chronic obstructive pulmonary disease) HTN (hypertension) Surgical History Hx of colonoscopy (~01/22/18) Hx of appendectomy History of total left hip replacement Family History Family History Mother No problems noted. Father No problems noted. Social History Social History Housing: House Alcohol intake: current Alcohol intake frequency: does not drink Patient Tobacco Use Status: Former Tobacco user e-Cigarette/Vaping Use: Currently Using Advance Directives: No Advance Directives Information Provided: Yes service: No Current occupational status: retired Cognitive needs: No Hearing needs: No Vision needs: Yes (reading glasses) Physical Exam Vital Signs: Vital Signs: Last Vital Signs Temp 99.0 F 12/09/24 12:19 Pulse 111 H 12/09/24 12:19 Resp 22 H 12/09/24 12:19 BP 113/59 L 12/09/24 12:19 Pulse Ox 96 12/09/24 12:19 O2 Del Method Nasal Cannula 12/09/24 12:19 O2 Flow Rate 2 12/09/24 12:19 BMI result Body Mass Index 17.6 Appearance: Alert. Oriented X3. Mild acute distress. Frail and temporal wasting noted. Eyes: Pupils equal, round and reactive to light. ENT: Pharynx dry MM Neck: Normal inspection. Neck supple. CVS: tachycardic heart rate and rhythm. Pulses normal. Respiratory: No respiratory distress. Breath sounds very diminished and coarse Abdomen: Soft and nontender. Skin: Skin warm and dry. Normal skin color. Normal skin turgor. Extremities: No lower extremity edema. No calf ttp Neuro: Oriented X 3. No motor deficit. No sensory deficit. CN2-12 intact Course Course Course Narrative: This is an RME: Additional HPI, ROS, PE not included below will be deferred to primary provider. RME assessment and note performed by: Eda Carvajal PA-C This is a 89-ayrd-ywe-male, with a hx of COPD, HTN, HLD, who presents to the ER with complaints of shortness of breath x 1 month, with associated LE swelling for the last 2 days. Reports productive cough. No chest pain. Family reports that he had a URI several weeks ago. No fevers, chills, SOB. Lungs are diminished throughout with expiratory phase and bilateral lung bases, with loose cough heard on exam. Oxygen saturation between 89 and 94%, worsening with coughing. Patient placed on 1L NC while awaiting room in the main ED. Plan: EKG, CXR, viral swabs, labs, further ER eval needed Reevaluation(s) Reevaluation #1: improving on O2 Medications Administered Generic Name Dose Route Start Last Admin Trade Name Freq PRN Reason Stop Dose Admin Azithromycin 500 mg/ Sodium 250 mls @ 125 mls/hr 12/09/24 11:24 12/09/24 11:50 Chloride IV 12/09/24 13:23 125 mls/hr ONCE ONE Administration Lactated Ringer's 1,000 mls @ 80 mls/hr 12/09/24 11:30 12/09/24 11:34 Lr IVCONT 80 mls/hr .[id number] SILVINA Administration Discontinued Medications Generic Name Dose Route Start Last Admin Trade Name Freq PRN Reason Stop Dose Admin Ceftriaxone Sodium 1 gm 12/09/24 11:16 12/09/24 11:43 Ceftriaxone Sodium 1 Gm Vial IVPUSH 12/09/24 11:17 1 gm ONCE ONE Administration Albuterol Sulfate 5 mg/ 0 mg 12/09/24 11:50 12/09/24 11:51 Albuterol/Ipratropium 3 ml INHALE 12/09/24 11:51 1 each ONCE ONE Administration Methylprednisolone Sodium Succinate 60 mg 12/09/24 11:16 12/09/24 11:42 Methylprednisolone Sod Succ 125 Mg/2 Ml Vial IVPUSH 12/09/24 11:17 60 mg ONCE ONE Administration Medical Decision Making Medical Decision Making [facility] Narrative: 79 yo male with PMH of smoker my entire life until 8 weeks ago but has never had inhalers or seen pulmonology, HTN here with cough, congestion, O2 sat 91% on arrival he is labored - at this time will put him on sepsis protocol, start IVF gentle hydration, empiric antibiotics, nebs and steroids suspect COPD vs pneumonia low prob VTE or BNP. Anticipate admission Differential Diagnosis Differential Diagnoses: The differential diagnosis associated with the presentation includes COPD vs pneumonia vs viral syndrome Admission/Observation Consideration of admission/observation: Escalation of care including admission/observation considered admit for nebs, steroids, O2, IV antibiotics Consult Healthcare Provider Management of the patient was discussed with: Hospitalist (will admit) Lab Data MDM Lab Attestation statement: I reviewed the patient's lab results. 12/09/24 10:53 12/09/24 10:53 Labs: Lab Results 12/09/24 12/09/24 12/09/24 Range/Units 10:53 11:28 11:34 WBC 12.5 H (4.8-10.8) X10*3/uL RBC 3.67 L (4.60-5.80) X10*6/uL Hgb 10.5 L (14.0-18.0) g/dl Hct 30.9 L (42.0-52.0) % MCV 84.2 (80.0-98.0) fL MCH 28.6 (27.0-33.0) pg MCHC 34.0 (31.0-36.0) g/dl RDW 14.3 (11.0-16.0) % Plt Count 428 H (160-400) X10*3/uL MPV 8.3 L (9.4-12.4) fL Immature Gran % (Auto) 0.4 (0.0-0.4) % Neut % (Auto) 79.6 H (45-73) % Lymph % (Auto) 7.5 L (20-40) % [place] % (Auto) 11.5 H (2-11) % Eos % (Auto) 0.8 (0-4) % Baso % (Auto) 0.2 (0-2) % Lymph # (Auto) 0.9 L (1.2-4.9) X10*3/uL [place] # (Auto) 1.4 H (0.1-1.2) X10*3/uL Eos # (Auto) 0.1 (0.0-0.4) X10*3/uL Baso # (Auto) 0.0 (0.0-0.2) X10*3/uL Abs Immat Gran (auto) 0.05 H (0.00-0.03) X10*3/uL Absolute Neuts (auto) 9.9 H (2.0-8.3) x10*3/uL Absolute Nucleated RBC 0.000 (0.0-0.012) X10*3/uL Nucleated RBC % (auto) 0.0 (0.0-0.2) /100WBC VBG pH 7.41 (7.32-7.43) VBG pCO2 53 mmHg VBG pO2 30 mmHg VBG HCO3 34 H (22-26) mmol/L VBG O2 Saturation 36.0 % VBG Base Excess 7.9 mmol/L Sodium 126 L (135-145) mmol/L Potassium 5.0 (3.3-5.1) mmol/L Chloride 91 L (96-108) mmol/L Carbon Dioxide 30 H (22-29) mmol/L Anion Gap 10 L (12-20) BUN 17 H (9-16) mg/dL Creatinine 0.79 (0.5-1.4) mg/dL Estim Creat Clear Calc 60.4 Estimated GFR > 60 Random Glucose 103 (60-115) mg/dL Lactic Acid 0.7 (0.5-2.0) mmol/L Calcium 9.2 (8.4-10.2) mg/dL Magnesium 1.8 (1.6-2.6) mg/dL Total Bilirubin 0.3 (0.0-1.0) mg/dL Direct Bilirubin 0.2 (0.0-0.5) mg/dL AST 29 (5-37) U/L ALT 35 (0-40) U/L Alkaline Phosphatase 60 (39-117) U/L Troponin I High Sens 8.1 (<3.5-35.0) ng/L B-Natriuretic Peptide 95 (<100) pg/mL Total Protein 6.9 (6.5-8.0) g/dL Albumin 3.2 L (3.5-5.0) g/dL Influenza Type A (PCR) NEGATIVE (Negative) Influenza Type B (PCR) NEGATIVE (Negative) RSV RNA Qual (PCR) NEGATIVE (Negative) SARS-CoV-2 RNA (RT-PCR) NEGATIVE (Negative) Independent Interpretation I performed an independent interpretation of an: EKG and Plain X-Ray (patchy opacities) Interpretation: Rate: 107 Rhythm: sinus tach [place]: normal Normal P waves. Normal [place]. Normal QRS complex. ST T wave : t waves tall V4-V6, no JOSE ANGEL qTC: 443 prior studies: no acute ischemia The study has been interpreted contemporaneously by me. . Radiology Impression Discussion of test interpretation with radiology: I have reviewed the radiologist's reading. Independent Historian Clinical information obtained from an independent historian. History obtained from or confirmed by: Spouse Critical Care Time Critical Care Time Critical Care Time: Yes Total Critical Care Time: 40 Attestation: hypoxia intervention, sepsis protocol, family discussion, admission I attest to this time spent taking care of the patient Discharge Plan Discharge Clinical Impression: Acute hyponatremia, Multifocal pneumonia Elevated WBC count Qualifiers: Leukocytosis type: unspecified Qualified Code(s): D72.829 - Elevated white blood cell count, unspecified Patient Disposition: Admitted As Inpatient Print Language: Cambodian
--- NOTE | 2024-12-09 10:27 | ECG_ITS ---
Test Reason : SOB Blood Pressure : */* mmHG Vent. Rate : 107 BPM Atrial Rate : 107 BPM P-R Int : 162 ms QRS Dur : 92 ms QT Int : 332 ms P-R-T Axes : 80 -2 31 degrees QTcB Int : 443 ms Sinus tachycardia Possible Left atrial enlargement Septal infarct , age undetermined Abnormal ECG When compared with ECG of 20-Jun-2018 11:37, Septal infarct is now Present Referred By: Eda Carvajal Electronically Signed By: JELENA WILD
[2024-12-09 11:04] LABS: MANUAL DIFF FLAG NO
[2024-12-09 11:08] LABS: Basophils Percent Auto 0.2 % (0-2); Eosinophils Absolute Auto 0.1 X10*3/uL (0.0-0.4); Eosinophils Percent Auto 0.8 % (0-4); Hematocrit 30.9 % (42.0-52.0); Hemoglobin 10.5 g/dl (14.0-18.0); Imm Gran Abs Auto 0.05 X10*3/uL (0.00-0.03); Imm Gran Pct Auto 0.4 % (0.0-0.4); Lymphocytes Absolute Auto 0.9 X10*3/uL (1.2-4.9); Lymphocytes Percent Auto 7.5 % (20-40); Mean Corpuscular Hemoglobin 28.6 pg (27.0-33.0); Mean Corpuscular Volume 84.2 fL (80.0-98.0); Mean Platelet Volume 8.3 fL (9.4-12.4); Monocytes Absolute Auto 1.4 X10*3/uL (0.1-1.2); Monocytes Percent Auto 11.5 % (2-11); Neutrophils Absolute Auto 9.9 x10*3/uL (2.0-8.3); Neutrophils Percent Auto 79.6 % (45-73); Platelet Count 428 X10*3/uL (160-400); Red Blood Count 3.67 X10*6/uL (4.60-5.80); Red Cell Distribution Width 14.3 % (11.0-16.0); White Blood Count 12.5 X10*3/uL (4.8-10.8)
--- NOTE | 2024-12-09 11:21 | PC.NURSE ---
Sepsis alert initiated.
[2024-12-09 11:23] LABS: Alanine Aminotransferase 35 U/L (0-40); Albumin Level 3.2 g/dL (3.5-5.0); Alkaline Phosphatase 60 U/L (39-117); Anion Gap 10 (12-20); Aspartate Amino Transferase 29 U/L (5-37); Bilirubin Direct 0.2 mg/dL (0.0-0.5); Bilirubin Total 0.3 mg/dL (0.0-1.0); Blood Urea Nitrogen 17 mg/dL (9-16); Calcium 9.2 mg/dL (8.4-10.2); Carbon Dioxide 30 mmol/L (22-29); Chloride 91 mmol/L (96-108); Creatinine Clr Calc Pharmacy 60.4; Estimated Glomerular Filt Rate > 60; Glucose Random 103 mg/dL (60-115); Magnesium 1.8 mg/dL (1.6-2.6); Sodium 126 mmol/L (135-145); Total Protein 6.9 g/dL (6.5-8.0)
[2024-12-09 11:26] LABS: B Type Natriuretic Peptide 95 pg/mL (<100)
[2024-12-09 11:28] LABS: Troponin-I High Sensitivity 8.1 ng/L (<3.5-35.0)
[2024-12-09] MEDS: Lactated Ringers 1,000 ML 80 ML IVCONT (11:34)
[2024-12-09 11:38] LABS: Venous Blood Gas Refer to POC result
[2024-12-09 11:39] LABS: VBG Base Excess 7.9 mmol/L; VBG HCO3 34 mmol/L (22-26); VBG pCO2 53 mmHg; VBG pH 7.41 (7.32-7.43); VBG pO2 30 mmHg
--- NOTE | 2024-12-09 11:41 | MHC.EDTECH ---
Patent brought from waiting room, changed pt into hospital attire,placed pt on the personnel monitor vitals taken, Blood cultures and labs obtained and sent to lab, at bedside call gandara in reach
[2024-12-09 11:42] LABS: Influenza A PCR NEGATIVE (Negative); Influenza B PCR NEGATIVE (Negative); Resp Syncy Virus RNA Qual PCR NEGATIVE (Negative); SARS COV2 PCR INHOUSE NEGATIVE (Negative)
[2024-12-09] MEDS: methylPREDNISolone Sod Succ 125 MG/2 ML VIAL 60 MG IVPUSH (11:42)
[2024-12-09] MEDS: cefTRIAXone sodium 1 GM VIAL IVPUSH (11:43)
[2024-12-09 11:50] LABS: Lactic Acid 0.7 mmol/L (0.5-2.0)
[2024-12-09] MEDS: Azithromycin 500 MG in 0.9 % Sodium Chloride 250 ML 125 MG IV (11:50)
[2024-12-09] MEDS: Albuterol Sulfate 5 MG, Albuterol/Iprat 2.5/0.5MG 3 ML 3 ML INHALE (11:51)
--- NOTE | 2024-12-09 12:09 | PC.NURSE ---
79 yo male with PMH of smoker my entire life until 8 weeks ago but has never had inhalers or seen pulmonology, HTN but no longer on medications he is here with his who reports a year of muscle loss and weight loss but unclear how much as well as 2 weeks of cough with yellow sputum, low grade fevers, increased trouble breathing and loose stools. patient alert and oriented, appear cachectic. 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 Continuous moist, congested cough noted. Lungs with diffuse rhonchi. Respirations labored, with orthopnea noted. Abdomen flat soft, non-tender with positive bowel sounds. Positive pedal pulses with no edema noted. Family at this bedside.
[2024-12-09 13:07] LABS: Anion Gap 15 (12-20); Blood Urea Nitrogen 16 mg/dL (9-16); Calcium 8.8 mg/dL (8.4-10.2); Carbon Dioxide 25 mmol/L (22-29); Chloride 92 mmol/L (96-108); Creatinine Clr Calc Pharmacy 67.2; Estimated Glomerular Filt Rate > 60; Glucose Random 123 mg/dL (60-115); Potassium 4.6 mmol/L (3.3-5.1); Sodium 127 mmol/L (135-145)
--- NOTE | 2024-12-09 14:00 | PC.NURSE ---
Sepsis alert initiated earlier but unable to give bolus fluids secondary to hyponatremia. IVF's initiated at 80cc per hour. ABX given as ordered. Blood pressures obtained after initiation of fluids. First lactic acid negative.
--- NOTE | 2024-12-09 14:12 | PHA.MEDREC ---
Addendum entered by Hali Jacobsen RPh 12/09/24 14:27: reviewed by [facility]. Original Note: Pharmacy Consult ? Medication Reconciliation Pharmacy has completed the medication reconciliation. Spoke to patients to confirm med list.
[2024-12-09] MEDS: iohexoL 350 MG/ML 100 ML INFUS..BTL IV (14:43)
[2024-12-09 14:48] LABS: Osmolality, Serum 267 mosm/kg (281-305)
--- NOTE | 2024-12-09 15:39 | PM.IMHP ---
History of Present Illness Date of Service: 12/09/24 <Selena Cueva NP - Last Filed: 12/10/24 16:17> Chief Complaint: Shortness of breath <Selena Cueva NP - Last Filed: 12/10/24 16:17> 79-year-old man presented to the ER complaints of worsening shortness breath. According to the patient's he has had upper respiratory symptoms for about 2 weeks and has been very weak. Patient's reports that he has been even having difficulty walking and having difficulty being able to change his clothes. She said prior to about 2-3 weeks ago patient was independent and driving. He has a history smoking but had quit smoking about 8 weeks ago for a eye procedure. On over the last 2 weeks he has been weak, tired, coughing and short of breath. He does not have a history of COPD and has not been treated for in his not on home oxygen. He denied chest pain, nausea, vomiting, diarrhea, fever, chills, recent travel, sick contacts. Chest CTA was negative for PE but did show advanced central lobular emphysema with irregular infiltrative appearing soft tissue mass centered in the right suprahilar region along with multiple irregular nodules. Patient was mildly elevated white count but no fever. He does have tachycardia which is likely chronic. Stable blood pressure, on 2 L nasal cannula satting 93%. He did receive a dose of ceftriaxone, Solu-Medrol, azithromycin, albuterol in the ER. He will be admitted for further management and treatment of likely pneumonia and lung mass. <Selena Cueva NP - Last Filed: 12/10/24 16:17> Review of Systems Review of Systems: Denies any recent fever chills or decrease in appetite respiratory see HPI cardiovascular see HPI gastrointestinal denies any dysphagia abdominal pain nausea vomiting or diarrhea genitourinary denies any dysuria frequency or hematuria musculoskeletal denies any joint pain or swelling neuropsych denies any weakness or seizures all other systems reviewed are negative <Selena Cueva NP - Last Filed: 12/10/24 16:17> [facility] Medical History: Medical History (Updated 12/10/24 @ 09:05 by August Cueva MD) Lymphadenopathy, mediastinal Lung mass Prediabetes Essential hypertension COPD (chronic obstructive pulmonary disease) HTN (hypertension) <Selena Cueva NP - Last Filed: 12/10/24 16:17> Family History: Family History Mother No problems noted. Father No problems noted. <Selena Cueva NP - Last Filed: 12/10/24 16:17> Surgical History: Surgical History Hx of colonoscopy (~01/22/18) Hx of appendectomy History of total left hip replacement <Selena Cueva NP - Last Filed: 12/10/24 16:17> Social History: Social History Household Members: Family Housing: House Do you presently have visiting nurse or other home services: No Alcohol intake: current Alcohol intake frequency: does not drink Patient Tobacco Use Status: Former Tobacco user Tobacco use type: Cigarette Smoked in Last 30 Days: No e-Cigarette/Vaping Use: Currently Using Patient Interested in Nicotine Replacement: No Patient Given Instructions on How to Stop Smoking: No Use of substances other than those prescribed or required for medical reasons: No Currently Displaying Signs/Symptoms of Drug Intoxication Withdrawal: No Any prior treatment program specific to substance use: No Have you been hit, kicked, punched, or otherwise hurt by someone within the past year? If so, by whom?: No Do you feel safe in your current relationship?: Yes Is there a partner from a previous relationship who is making you feel unsafe now?: No Are you made to feel afraid or neglected: No Spiritual Healthcare Practices: tenriism Advance Directives: No Advance Directives Information Provided: Yes Do you have a plan to hurt others: No Plan Recently lost weight without trying: Yes How much weight loss: 2-13 pounds Eating poorly because of decreased appetite: Yes Nutrition screen score: 4 Nutrition Risks: Dental problems Poor oral hygiene: No service: No Current occupational status: retired Cognitive needs: No Hearing needs: No Vision needs: Yes (reading glasses) <Selena Cueva NP - Last Filed: 12/10/24 16:17> Meds Allergies/Adverse reactions: Allergies Allergy/AdvReac Type Severity Reaction Status Date / Time No Known Allergies Allergy Verified 12/09/24 10:32 [No Known Allergies*] <Selena Cueva NP - Last Filed: 12/10/24 16:17> Active Medications: Current Medications Acetaminophen (Acetaminophen 325 Mg Tablet) 650 mg PO Q6H PRN PRN Reason: Pain, Mild 1-3,fever,headache Albuterol/Ipratropium (Albuterol/Iprat 2.5/0.5mg 3 Ml Ampul.Neb) 3 ml INHALE RQ4H WHILE AWAKE SILVINA Calcium Carbonate (Calcium Carbonate 750 Mg Tab.Chew) 750 mg PO Q4H PRN PRN Reason: Heartburn Ceftriaxone Sodium (Ceftriaxone Sodium 1 Gm Vial) 1 gm IVPUSH Q24H SILVINA Enoxaparin Sodium (Enoxaparin Sodium 40 Mg/0.4 Ml Syringe) 40 mg SUBCUT Q24H [facility] Lactated Ringer's (Lr) 1,000 mls @ 80 mls/hr IVCONT .[id number] SILVINA Last Admin: 12/09/24 11:34 Dose: 80 mls/hr Azithromycin 500 mg/ Sodium (Chloride) 250 mls @ 125 mls/hr IV Q24H SILVINA Magnesium Hydroxide (Milk Of Magnesia 30 Ml Oral.Susp) 30 ml PO DAILY PRN PRN Reason: Constipation Melatonin (Melatonin 3 Mg Tablet) 6 mg PO BEDTIME PRN PRN Reason: Insomnia Sodium Chloride (0.9 % Sodium Chloride Flush 3 Ml Syringe) 3 ml IVFLUSH QSHIFT SILVINA <Selena Cueva NP - Last Filed: 12/10/24 16:17> Home medications: Home Medications ?Medication ?Instructions ?Recorded ?Confirmed ?Last Taken ?Type cetirizine 10 mg capsule (Zyrtec) 10 mg PO DAILY PRN Allergy Symptoms 10/28/24 12/09/24 Unknown History cholecalciferol (vitamin D3) 50 50 mcg PO DAILY 10/28/24 12/09/24 12/09/24 History mcg (2,000 unit) tablet phosphatidylserine 100 mg capsule 100 mg PO DAILY 10/28/24 12/09/24 12/09/24 History cranberry fruit 450 mg tablet 450 mg PO DAILY 12/09/24 12/09/24 12/09/24 History (cranberry) guaifenesin 600 mg tablet, 600 mg PO BID 12/09/24 12/09/24 12/09/24 History extended release 12 hr (Mucinex) lisinopril 5 mg tablet 5 mg PO DAILY 12/09/24 12/09/24 12/09/24 History <Selena Cueva NP - Last Filed: 12/10/24 16:17> Physical Exam Vital Signs and Narrative: Vital Signs: Last Vital Signs Temp 98.9 F 12/09/24 13:40 Pulse 107 H 12/09/24 13:40 Resp 28 H 12/09/24 13:40 BP 118/63 12/09/24 13:40 Pulse Ox 95 12/09/24 13:40 O2 Del Method Nasal Cannula 12/09/24 13:40 O2 Flow Rate 2 12/09/24 13:40 BMI result Body Mass Index 17.6 <Selena Cueva NP - Last Filed: 12/10/24 16:17> Appearing in no acute distress head is normocephalic atraumatic eyes pupils are PERRLA sclera is anicteric mouth throat mucous membranes are intact and moist neck is supple no lymphadenopathy, no JVD noted lung sounds are clear to auscultation heart regular rate rhythm, clear S1, S2 positive bowel sounds, abdomen is soft, nontender neuro patient is alert x3, no focal deficits <Selena Cueva NP - Last Filed: 12/10/24 16:17> Results Labs CBC and Chem 7: 12/10/24 06:54 12/10/24 06:54 <Selena Cueva NP - Last Filed: 12/10/24 16:17> Labs: Laboratory Results - last 24 hr 12/09/24 12/09/24 12/09/24 10:53 11:28 11:34 MCV 84.2 MCH 28.6 MCHC 34.0 RDW 14.3 Plt Count 428 H MPV 8.3 L Immature Gran % (Auto) 0.4 Neut % (Auto) 79.6 H Lymph % (Auto) 7.5 L Glades % (Auto) 11.5 H Eos % (Auto) 0.8 Baso % (Auto) 0.2 Lymph # (Auto) 0.9 L Glades # (Auto) 1.4 H Eos # (Auto) 0.1 Baso # (Auto) 0.0 Abs Immat Gran (auto) 0.05 H Absolute Neuts (auto) 9.9 H Absolute Nucleated RBC 0.000 Nucleated RBC % (auto) 0.0 VBG pH 7.41 VBG pCO2 53 VBG pO2 30 VBG HCO3 34 H VBG O2 Saturation 36.0 VBG Base Excess 7.9 Anion Gap 10 L Estim Creat Clear Calc 60.4 Estimated GFR > 60 Random Glucose 103 Osmolality Lactic Acid 0.7 Calcium 9.2 Magnesium 1.8 Total Bilirubin 0.3 Direct Bilirubin 0.2 AST 29 ALT 35 Alkaline Phosphatase 60 B-Natriuretic Peptide 95 Total Protein 6.9 Albumin 3.2 L Influenza Type A (PCR) NEGATIVE Influenza Type B (PCR) NEGATIVE RSV RNA Qual (PCR) NEGATIVE SARS-CoV-2 RNA (RT-PCR) NEGATIVE 12/09/24 12:42 MCV MCH MCHC RDW Plt Count MPV Immature Gran % (Auto) Neut % (Auto) Lymph % (Auto) Glades % (Auto) Eos % (Auto) Baso % (Auto) Lymph # (Auto) Glades # (Auto) Eos # (Auto) Baso # (Auto) Abs Immat Gran (auto) Absolute Neuts (auto) Absolute Nucleated RBC Nucleated RBC % (auto) VBG pH VBG pCO2 VBG pO2 VBG HCO3 VBG O2 Saturation VBG Base Excess Anion Gap 15 Estim Creat Clear Calc 67.2 Estimated GFR > 60 Random Glucose 123 H Osmolality 267 L Lactic Acid Calcium 8.8 Magnesium Total Bilirubin Direct Bilirubin AST ALT Alkaline Phosphatase B-Natriuretic Peptide Total Protein Albumin Influenza Type A (PCR) Influenza Type B (PCR) RSV RNA Qual (PCR) SARS-CoV-2 RNA (RT-PCR) <Selena Cueva NP - Last Filed: 12/10/24 16:17> Imaging Radiologist's Impressions: Impressions Chest X-Ray 12/09/24 10:28 IMPRESSION: COPD emphysematous type changes with superimposed acute airspace disease. Recommend follow-up until resolution since underlying malignancy cannot be excluded. Electronically signed by: Liam Mederos MD 12/09/2024 10:51 AM EDT Chest CTA 12/09/24 14:34 IMPRESSION: 1. No evidence of pulmonary embolism or acute aortic syndrome. 2. There is moderate to advanced centrilobular emphysema. 3. Irregular infiltrating appearing soft tissue mass centered in the right suprahilar region, grossly measuring 4.7 x 3.3 x 7.1 cm, with right superior mediastinal invasion, and invasion of the right upper lobe. Malignancy is highly suspected. 4. There are numerous irregular stellate nodular opacities (likely metastases) throughout the right upper lobe. There is smooth interlobular septal thickening suggesting either unilateral pulmonary edema or lymphangitic carcinomatosis. 5. There is an irregular retractile appearing stellate mass in the lingular segment approximately 3.7 x 4.8 x 3.9 cm, also associated with smooth interlobular septal thickening. Malignancy suggested. 6. There is diffuse thickening of the small airways present. 7. There are abnormal lymph nodes in the mediastinum as detailed. 8. Patient is cachectic. 9. There is no pleural effusion. Electronically signed by: Charlie Bustamante MD 12/09/2024 03:28 PM EDT RP <Selena Cueva NP - Last Filed: 12/10/24 16:17> Assessment and Plan (1) Multifocal pneumonia: Status: Acute <Selena Cueva NP - Last Filed: 12/10/24 16:17> (2) Acute hyponatremia: Status: Acute <Selena Cueva NP - Last Filed: 12/10/24 16:17> 79-year-old man admitted with pneumonia and new lung mass Acute hypoxic respiratory failure secondary to pneumonia, emphysema Long-time history of smoking but recently quit Placed on 2 L of oxygen, titrate to keep oxygen saturation greater than 91% Continue Rocephin and azithromycin Scheduled DuoNebs Steroid Lung mass Possible malignancy from history of smoking Has lost about 30 lb since 2021 Pulmonary consultation Hyponatremia Possibly secondary to malignancy versus dehydration Continue IV fluids recheck BMP this evening Tachycardia Likely baseline from history of smoking echocardiogram in lighgt of hypoxia as well Monitor Normocytic anemia Stable H&H DVT prophylaxis with Lovenox Full code <Selena Cueva NP - Last Filed: 12/10/24 16:17> Quality Stroke Does the patient have a stroke diagnosis?: No <Neal Larios MD - Last Filed: 12/10/24 07:43> VTE Prior VTE?: No <Neal Larios MD - Last Filed: 12/10/24 07:43> VTE Risk Level:: Medical - moderate - high <Selena Cueva NP - Last Filed: 12/10/24 16:17> VTE Device Contraindication: Treatment Not Indicated <Selena Cueva NP - Last Filed: 12/10/24 16:17> VTE Drug Contraindication: N/A - Med Ordered <Selena Cueva PROCESS MACHINE OPERATOR - Last Filed: 12/10/24 16:17>
[2024-12-09] MEDS: Enoxaparin Sodium 40 MG/0.4 ML SYRINGE SUBCUT (16:27)
[2024-12-09 16:49] LABS: Chloride Urine Random < 20.0 mmol/L; Osmolality Urine 231 mosm/kg (373-1093); Potassium Urine Random 36.3 mmol/L; Sodium Urine Random < 20.0 mmol/L
[2024-12-09 17:34] LABS: Anion Gap 15 (12-20); Blood Urea Nitrogen 15 mg/dL (9-16); Calcium 9.1 mg/dL (8.4-10.2); Carbon Dioxide 25 mmol/L (22-29); Chloride 94 mmol/L (96-108); Creatinine Clr Calc Pharmacy 62.8; Estimated Glomerular Filt Rate > 60; Glucose Random 158 mg/dL (60-115); Potassium 4.7 mmol/L (3.3-5.1); Sodium 129 mmol/L (135-145)
[2024-12-09] MEDS: methylPREDNISolone Sod Succ 40 MG/ML VIAL IVPUSH (18:04)
--- NOTE | 2024-12-09 19:46 | PC.NURSE ---
CTA shows - irregular infiltrating appearing soft tissue mass centered in the right suprahilar region, grossly measuring 4.7 x 3.3 x 7.1 cm, with right superior mediastinal invasion, and invasion of the right upper lobe. Malignancy is highly suspected. 4. There are numerous irregular stellate nodular opacities (likely metastases) throughout the right upper lobe. There is smooth interlobular septal thickening suggesting either unilateral pulmonary edema or lymphangitic carcinomatosis.
[2024-12-09] MEDS: Albuterol/Iprat 2.5/0.5MG 3 ML AMPUL.NEB INHALE (20:23)
[2024-12-09] MEDS: guaiFENesin LA 600 MG TAB.ER.12H PO (22:18)
[2024-12-10] VITALS (12 sets, daily range): BP systolic 90–134; BP diastolic 55–72; PULSE 98–109; RESP 15–20; TEMP 36.6–37.2; O2SAT 92–96; BMI 17.6
[2024-12-10] MEDS: Melatonin 3 MG TABLET 6 MG PO (01:21)
[2024-12-10] MEDS: guaiFEN/Codeine SF 200/20/10ML 10 ML LIQUID 5 ML PO ×3 (02:32→16:27)
[2024-12-10] MEDS: 0.9 % Sodium Chloride Flush 3 ML SYRINGE IVFLUSH ×4 (02:33→21:28)
[2024-12-10] MEDS: methylPREDNISolone Sod Succ 40 MG/ML VIAL IVPUSH ×2 (06:00→16:26)
--- NOTE | 2024-12-10 07:00 | CA_ITS ---
Transthoracic Echocardiogram Patient (Last, First, Middle): Hilario Zhou J Gender: Male Date of : 1945 Age: 79 Procedure Date: 12/10/2024 Procedure Type: Transthoracic Echocardiogram [place] [facility] [place] Height: 180.34 cm Weight: 57.15 kg BSA: 1.73 m2 Heart Rate: 106 bpm BP: 121 / 72 mmHg Design Specialist: SB Referring MD: Selena Cueva NP Symptoms: hypoxia, tachycardia Study Quality: Adequate ECG Rhythm: Tachycardia Conclusions: - The left ventricular systolic function is normal. The calculated ejection fraction is 65% by biplane method. - There is mild to moderate aortic valve stenosis. - There is moderate mitral annular calcification. There is moderate mitral valve regurgitation. - Mild pulmonary hypertension is present. Findings Left Ventricle Normal left ventricular cavity size. The left ventricular systolic function is normal. The calculated ejection fraction is 65% by biplane method. There is no evidence of regional wall motion abnormalities. Diastolic function is normal for age. There is mild septal asymmetric hypertrophy. Right Ventricle Normal right ventricular cavity size and systolic function. Atria The left atrium is mildly dilated. The right atrium is normal in size. Aortic Valve There is moderate calcification of the aortic valve. There is mild to moderate aortic valve stenosis. There is no aortic valve regurgitation. Mitral Valve There is moderate mitral annular calcification. There is moderate mitral valve regurgitation. There is no mitral valve stenosis. Pulmonic Valve The pulmonic valve is likely normal. Tricuspid Valve There is trace tricuspid valve regurgitation. Mild pulmonary hypertension is present. Great Vessels The aorta was not well visualized. The sinuses of valsalva is normal in size. Venous The inferior vena cava is mildly dilated and collapses less than 50% with inspiration. Pericardium/Pleural There is no evidence of pericardial effusion. Prior Study Comparison No prior study available for comparison. Measurements 2D Linear Measurements IVSd: 1.08 0.6-0.9/0.6-1.0 cm LVIDd: 4.46 3.9-5.3/4.2-5.9 cm LVIDd Index: 2.58 2.4-3.2/2.2-3.1 cm/m2 LVIDs: 3.15 2.0-3.6 cm LVPWd: 0.83 0.7-1.1 cm LA Diam: 4.30 2.7-3.8/3.0-4.0 cm LAIDs Index: 2.49 1.5-2.3 cm/m2 LV Mass: 175.92 67-162/88-224 g LV Mass Index: 101.69 43-95/49-115 g/m2 LVOT Diam: 2.00 3.0+(-)1.3 cm 2D Systolic Function EF 4C: 61.50 >55% EF 2C: 64.90 >55% EF BiP: 65.00 >55% Mitral Valve MV Pk E: 1.25 MV PK A: 1.87 E/A: 0.70 E'Lateral: 11.50 E'Medial: 7.40 E/E' Med: 16.90 E/E' Lat: 10.90 MR Vol - PW Dopp: 28.38 MR VTI: 1.29 MR ERO: 22.00 MR Alias Kieran: 0.40 MR RAD: 0.70 Aortic Valve AoV Pk Kieran: 3.12 AoV Mn Kieran: 2.20 AoV VTI: 0.41 AoV Pk Grad: 39.00 Aov Mn Grad: 22.00 DESIRE Cont.VTI: 1.39 LVOT LVOT Pk Kieran: 1.05 LVOT Mn Kieran: 0.76 LVOT VTI: 0.18 LVOT Pk Grad: 4.00 LVOT Mn Grad: 3.00 LVOT Diam: 2.00 LVOT Area: 3.14 Diastolic Function MV Pk E: 1.25 MV Pk A: 1.87 E/A: 0.70 E'Medial: 7.40 E/E' Med: 16.90 E' Laterial: 11.50 E/E' Lat: 10.90 Right Ventricle TAPSE (mm): 23.90 TVS' Kieran: 15.70 Tricuspid Valve TR Pk Kieran: 2.50 TR Pk Grad: 25.00 RA Press: 15.00 RVSP: 40.00 Great Vessels Aorta Sinus of Valsalva: 3.70 2.0-3.5 cm Pulmonary Valve PV Pk Kieran: 0.88 Peak PV Grad: 3.00 Updated in Other Vendor System with Status of Final Juan Matos MD electronically signed on 12/10/2024 11:22:55 AM with status of Final
[2024-12-10 07:31] LABS: Hematocrit 27.1 % (42.0-52.0); Hemoglobin 9.3 g/dl (14.0-18.0); Mean Corpuscular HGB Conc 34.3 g/dl (31.0-36.0); Mean Corpuscular Hemoglobin 28.8 pg (27.0-33.0); Mean Corpuscular Volume 83.9 fL (80.0-98.0); Mean Platelet Volume 8.6 fL (9.4-12.4); Platelet Count 408 X10*3/uL (160-400); Red Blood Count 3.23 X10*6/uL (4.60-5.80); Red Cell Distribution Width 14.4 % (11.0-16.0); White Blood Count 16.2 X10*3/uL (4.8-10.8)
[2024-12-10 07:52] LABS: Anion Gap 12 (12-20); Blood Urea Nitrogen 20 mg/dL (9-16); Calcium 8.9 mg/dL (8.4-10.2); Carbon Dioxide 27 mmol/L (22-29); Chloride 96 mmol/L (96-108); Creatinine Clr Calc Pharmacy 65.4; Estimated Glomerular Filt Rate > 60; Glucose Random 136 mg/dL (60-115); Potassium 4.6 mmol/L (3.3-5.1); Sodium 130 mmol/L (135-145)
[2024-12-10] MEDS: Albuterol/Iprat 2.5/0.5MG 3 ML AMPUL.NEB INHALE ×3 (07:53→15:41)
[2024-12-10] MEDS: guaiFENesin LA 600 MG TAB.ER.12H PO ×2 (08:36→21:28)
[2024-12-10] MEDS: lisinopriL 5 MG TABLET PO (08:36)
--- NOTE | 2024-12-10 09:01 | P.CONPL_ITS ---
History of Present Illness History of Present Illness Consult date: 12/10/24 Chief complaint: Hyponatremia Copd excerebation Narrative: This is an inpatient pulmonary consultation. The patient is an 79-year-old man presented to the ER complaints of worsening shortness breath. According to the patient's he has had upper respiratory symptoms for about 2 weeks and has been very weak. Patient's reports that he has been even having difficulty walking and having difficulty being able to change his clothes. She said prior to about 2-3 weeks ago patient was independent and driving. He has a history smoking but had quit smoking about 8 weeks ago for a eye procedure. On over the last 2 weeks he has been weak, tired, coughing and short of breath. He does not have a history of COPD and has not been treated for in his not on home oxygen. He denied chest pain, nausea, vomiting, diarrhea, fever, chills, recent travel, sick contacts. Chest CTA was done and was personally by me. It was negative for PE but did show advanced central lobular emphysema with irregular infiltrative appearing soft tissue mass centered in the right suprahilar region along with multiple irregular nodules. Patient was mildly elevated white count but no fever. He does have tachycardia which is likely chronic. Stable blood pressure, on 2 L nasal cannula satting 93%. He did receive a dose of ceftriaxone, Solu-Medrol, azithromycin, albuterol in the ER. Her the patient has oxygen. Denies any chest pain. Does have cough productive in nature. Difficult to expectorate. I do believe that he has not underlying pneumonia it could be indeed postobstructive and does appear to have a a concerning masslike density highly suspicious for cancer. To better increase the yield of her diagnosis be better to treat his infection and to have him undergo a outpatient PET scan. With a PET scan will have a better sense of where to best biopsy. He could undergo endobronchial ultrasound bronchoscopy but moved require anesthesia. If he has any other extrapulmonary lesions on the PET scan then potentially be easier to biopsy both for a diagnostic and staging purpose. Review of Systems 2 Review of Systems: Constitutional : No Fever, pos Chills, pos fatigue ENT/Mouth : No Hoarseness, No sore throat, No Rhinorrhea Eyes: No Redness, No Discharge, No Vision Changes Cardiovascular : No Chest Pain, positive SOB, positive Dyspnea on Exertion, No Edema Respiratory : positive Cough, pos Sputum, positive Wheezing, Gastrointestinal : No Nausea, No Vomiting, No Diarrhea, No abdominal Pain Genitourinary : No Dysuria, No Hematuria Musculoskeletal : No joint pain, No Myalgias Skin : No rash Neuro : pos Weakness, No Numbness, No Headache Psych : No anxiety, depression Heme/Lymph: No Bruising, No Bleeding Endocrine : No Polyuria, No Polydipsia All other systems reviewed and are negative PMFSH Past Medical History Medical History (Updated 12/10/24 @ 09:05 by August Cueva MD) Lymphadenopathy, mediastinal Lung mass Prediabetes Essential hypertension COPD (chronic obstructive pulmonary disease) HTN (hypertension) Family History Family History Mother No problems noted. Father No problems noted. Surgical History Surgical History Hx of colonoscopy (~01/22/18) Hx of appendectomy History of total left hip replacement Social History Social History Household Members: Family Housing: House Do you presently have visiting nurse or other home services: No Alcohol intake: current Alcohol intake frequency: does not drink Patient Tobacco Use Status: Former Tobacco user Tobacco use type: Cigarette Smoked in Last 30 Days: No e-Cigarette/Vaping Use: Currently Using Patient Interested in Nicotine Replacement: No Patient Given Instructions on How to Stop Smoking: No Use of substances other than those prescribed or required for medical reasons: No Currently Displaying Signs/Symptoms of Drug Intoxication Withdrawal: No Any prior treatment program specific to substance use: No Have you been hit, kicked, punched, or otherwise hurt by someone within the past year? If so, by whom?: No Do you feel safe in your current relationship?: Yes Is there a partner from a previous relationship who is making you feel unsafe now?: No Are you made to feel afraid or neglected: No Spiritual Healthcare Practices: temple Advance Directives: No Advance Directives Information Provided: Yes Do you have a plan to hurt others: No Plan Recently lost weight without trying: Yes How much weight loss: 2-13 pounds Eating poorly because of decreased appetite: Yes Nutrition screen score: 4 Nutrition Risks: Dental problems Poor oral hygiene: No service: No Current occupational status: retired Cognitive needs: No Hearing needs: No Vision needs: Yes (reading glasses) Meds Allergies Allergy/AdvReac Type Severity Reaction Status Date / Time No Known Allergies Allergy Verified 12/09/24 10:32 [No Known Allergies*] Active Medications: Current Medications Acetaminophen (Acetaminophen 325 Mg Tablet) 650 mg PO Q6H PRN PRN Reason: Pain, Mild 1-3,fever,headache Albuterol/Ipratropium (Albuterol/Iprat 2.5/0.5mg 3 Ml Ampul.Neb) 3 ml INHALE RQ4H WHILE AWAKE [facility] Last Admin: 12/10/24 07:53 Dose: 3 ml Calcium Carbonate (Calcium Carbonate 750 Mg Tab.Chew) 750 mg PO Q4H PRN PRN Reason: Heartburn Ceftriaxone Sodium (Ceftriaxone Sodium 1 Gm Vial) 1 gm IVPUSH Q24H [facility] Enoxaparin Sodium (Enoxaparin Sodium 40 Mg/0.4 Ml Syringe) 40 mg SUBCUT Q24H [facility] Last Admin: 12/09/24 16:27 Dose: 40 mg Guaifenesin (Guaifenesin La 600 Mg Tab.Er.12h) 600 mg PO BID [facility] Last Admin: 12/10/24 08:36 Dose: 600 mg Guaifenesin/Codeine Phosphate (Guaifen/Codeine Sf 200/20/10ml 10 Ml Liquid) 5 ml PO Q6H PRN PRN Reason: Cough Last Admin: 12/10/24 02:32 Dose: 5 ml Azithromycin 500 mg/ Sodium (Chloride) 250 mls @ 125 mls/hr IV Q24H SIL[facility]INA Lisinopril (Lisinopril 5 Mg Tablet) 5 mg PO DAILY [facility]; Protocol Last Admin: 12/10/24 08:36 Dose: 5 mg Loratadine (Loratadine 10 Mg Tablet) 10 mg PO DAILY PRN PRN Reason: Allergy Symptoms Magnesium Hydroxide (Milk Of Magnesia 30 Ml Oral.Susp) 30 ml PO DAILY PRN PRN Reason: Constipation Melatonin (Melatonin 3 Mg Tablet) 6 mg PO BEDTIME PRN PRN Reason: Insomnia Last Admin: 12/10/24 01:21 Dose: 6 mg Methylprednisolone Sodium Succinate (Methylprednisolone Sod Succ 40 Mg/Ml Vial) 40 mg IVPUSH Q12H [facility] Last Admin: 12/10/24 06:00 Dose: 40 mg Sodium Chloride (0.9 % Sodium Chloride Flush 3 Ml Syringe) 3 ml IVFLUSH QSHIFT [facility] Last Admin: 12/10/24 08:37 Dose: 3 ml Home Medications ?Medication ?Instructions ?Recorded ?Confirmed ?Last Taken ?Type cetirizine 10 mg capsule (Zyrtec) 10 mg PO DAILY PRN Allergy Symptoms 10/28/24 12/09/24 Unknown History cholecalciferol (vitamin D3) 50 50 mcg PO DAILY 10/28/24 12/09/24 12/09/24 History mcg (2,000 unit) tablet phosphatidylserine 100 mg capsule 100 mg PO DAILY 10/28/24 12/09/24 12/09/24 History cranberry fruit 450 mg tablet 450 mg PO DAILY 12/09/24 12/09/24 12/09/24 History (cranberry) guaifenesin 600 mg tablet, 600 mg PO BID 12/09/24 12/09/24 12/09/24 History extended release 12 hr (Mucinex) lisinopril 5 mg tablet 5 mg PO DAILY 12/09/24 12/09/24 12/09/24 History Physical Exam 2 Vital Signs: Vital Signs: Last Vital Signs Temp 98.3 F 12/10/24 07:09 Pulse 100 12/10/24 07:57 Resp 15 12/10/24 07:57 BP 134/70 12/10/24 08:36 Pulse Ox 93 12/10/24 07:09 O2 Del Method Nasal Cannula 12/10/24 07:09 O2 Flow Rate 4 12/10/24 07:09 BMI result Body Mass Index 17.6 Appearance: Alert. Oriented X3. Mild acute distress. Frail and temporal wasting noted. Eyes: Pupils equal, round and reactive to light. ENT: Pharynx dry MM Neck: Normal inspection. Neck supple. CVS: tachycardic heart rate and rhythm. Pulses normal. Respiratory: No respiratory distress. Breath sounds very diminished and coarse Abdomen: Soft and nontender. Skin: Skin warm and dry. Normal skin color. Normal skin turgor. Extremities: No lower extremity edema. No calf ttp Neuro: Oriented X 3. No motor deficit. No sensory deficit. CN2-12 intact Results Laboratory Findings 12/10/24 06:54 12/10/24 06:54 Abnormal lab findings: Abnormal Labs 12/09/24 12/09/24 12/09/24 10:53 11:34 12:42 WBC 12.5 H RBC 3.67 L Hgb 10.5 L Hct 30.9 L Plt Count 428 H MPV 8.3 L Neut % (Auto) 79.6 H Lymph % (Auto) 7.5 L [place] % (Auto) 11.5 H Lymph # (Auto) 0.9 L [place] # (Auto) 1.4 H Abs Immat Gran (auto) 0.05 H Absolute Neuts (auto) 9.9 H VBG HCO3 34 H Sodium 126 L 127 L Chloride 91 L 92 L Carbon Dioxide 30 H Anion Gap 10 L BUN 17 H Random Glucose 123 H Osmolality 267 L Albumin 3.2 L Urine Osmolality 12/09/24 12/09/24 12/10/24 16:31 17:14 06:54 WBC 16.2 H RBC 3.23 L Hgb 9.3 L Hct 27.1 L Plt Count 408 H MPV 8.6 L Neut % (Auto) Lymph % (Auto) [place] % (Auto) Lymph # (Auto) [place] # (Auto) Abs Immat Gran (auto) Absolute Neuts (auto) VBG HCO3 Sodium 129 L 130 L Chloride 94 L Carbon Dioxide Anion Gap BUN 20 H Random Glucose 158 H 136 H Osmolality Albumin Urine Osmolality 231 L Assessment and Plan (1) Multifocal pneumonia: Status: Acute (2) Acute hyponatremia: Status: Acute (3) COPD (chronic obstructive pulmonary disease): Qualifiers: COPD type: chronic bronchitis Status: Acute (4) Lung mass: Status: Acute (5) Lymphadenopathy, mediastinal: Status: Acute Plan complete abx course x 8-10 days Supplemental oxygen to maintain a pulse ox above 90% Continue respiratory therapy Prednisone taper Outpatient PFTs Outpatient PET scan with outpatient pulmonary follow-up. Will have to further discuss diagnostic interventions. The patient appears to be frail and strengthening him will be best in order for him to undergo any potential invasive or semi-invasive diagnostic interventions. Procedures Date of Service Date of Service: 12/10/24
--- NOTE | 2024-12-10 10:10 | MHC.CLN ---
PT IS MODERATELY MALNOURISHED PT WITH MILDLY DEPLETED SUBCUTANEOUS FAT AND MUSCLE MASS WITH 13% NONSIGNIFICANT WT LOSS X2.5 YEARS NEW DX LUNG MASS, ANEMIA AND PT APPEARS CACHETIC PER CTA SCAN MALIGNANCY IS HIGHLY SUSPECTED DIET RX: 2GM NA -RECOMMEND LIBERALIZING DIET TO REGULAR TO INCREASE KCALS RECOMMEND ADDING ENSURE TID TO INCREASE KCALS ENSURE TID TO PROVIDE 1050KCALS, 60G PROTEIN MONITOR PO INTAKE AND ENCOURAGE SUPPLEMENT SEE FULL CLINICAL NUTRITION ASSESSMENT
--- NOTE | 2024-12-10 11:27 | P.PNIM_ITS ---
Subjective Subjective Date of Service: 12/10/24 Interval History: Short of breath Physical Exam 2 Vital Signs: Vital Signs: Last Vital Signs Temp 98.9 F 12/10/24 11:01 Pulse 98 12/10/24 11:27 Resp 18 12/10/24 11:27 BP 116/63 12/10/24 11:01 Pulse Ox 93 12/10/24 11:01 O2 Del Method Nasal Cannula 12/10/24 11:01 O2 Flow Rate 4 12/10/24 11:01 BMI result Body Mass Index 17.6 General: AO X 3, ill, frail Resp: diminished bilateral, accessory muscles used CVS: S1,S2,RRR GI: soft, non tender, non distended Neuro: motor grossly intact, alert Psych: appropriate affect, appropriate insight Objective Data Active Medications Acetaminophen (Acetaminophen 325 Mg Tablet) 650 mg PO Q6H PRN PRN Reason: Pain, Mild 1-3,fever,headache Albuterol/Ipratropium (Albuterol/Iprat 2.5/0.5mg 3 Ml Ampul.Neb) 3 ml INHALE RQ4H WHILE AWAKE [facility] Last Admin: 12/10/24 11:25 Dose: 3 ml Documented By: JAMES Calcium Carbonate (Calcium Carbonate 750 Mg Tab.Chew) 750 mg PO Q4H PRN PRN Reason: Heartburn Ceftriaxone Sodium (Ceftriaxone Sodium 1 Gm Vial) 1 gm IVPUSH Q24H [facility] Enoxaparin Sodium (Enoxaparin Sodium 40 Mg/0.4 Ml Syringe) 40 mg SUBCUT Q24H [facility] Last Admin: 12/09/24 16:27 Dose: 40 mg Documented By: LOU Guaifenesin (Guaifenesin La 600 Mg Tab.Er.12h) 600 mg PO BID [facility] Last Admin: 12/10/24 08:36 Dose: 600 mg Documented By: DESIREE Guaifenesin/Codeine Phosphate (Guaifen/Codeine Sf 200/20/10ml 10 Ml Liquid) 5 ml PO Q6H PRN PRN Reason: Cough Last Admin: 12/10/24 02:32 Dose: 5 ml Documented By: SALMOD Azithromycin 500 mg/ Sodium (Chloride) 250 mls @ 125 mls/hr IV Q24H [facility] Lisinopril (Lisinopril 5 Mg Tablet) 5 mg PO DAILY [facility]; Protocol Last Admin: 12/10/24 08:36 Dose: 5 mg Documented By: DESIREE Loratadine (Loratadine 10 Mg Tablet) 10 mg PO DAILY PRN PRN Reason: Allergy Symptoms Magnesium Hydroxide (Milk Of Magnesia 30 Ml Oral.Susp) 30 ml PO DAILY PRN PRN Reason: Constipation Melatonin (Melatonin 3 Mg Tablet) 6 mg PO BEDTIME PRN PRN Reason: Insomnia Last Admin: 12/10/24 01:21 Dose: 6 mg Documented By: DESIRE Methylprednisolone Sodium Succinate (Methylprednisolone Sod Succ 40 Mg/Ml Vial) 40 mg IVPUSH Q12H [facility] Last Admin: 12/10/24 06:00 Dose: 40 mg Documented By: DESIRE Sodium Chloride (0.9 % Sodium Chloride Flush 3 Ml Syringe) 3 ml IVFLUSH QSHIFT [facility] Last Admin: 12/10/24 08:37 Dose: 3 ml Documented By: DESIREE Labs 12/10/24 06:54 12/10/24 06:54 Labs: Laboratory Results - last 24 hr 12/09/24 12/09/24 12/09/24 10:53 11:28 11:34 MCV MCH MCHC RDW Plt Count MPV Absolute Nucleated RBC Nucleated RBC % (auto) VBG pH 7.41 VBG pCO2 53 VBG pO2 30 VBG HCO3 34 H VBG O2 Saturation 36.0 VBG Base Excess 7.9 Anion Gap Estim Creat Clear Calc Estimated GFR Random Glucose Osmolality Lactic Acid 0.7 Calcium Magnesium Urine Osmolality Ur Random Sodium Ur Random Potassium Ur Random Chloride Influenza Type A (PCR) NEGATIVE Influenza Type B (PCR) NEGATIVE RSV RNA Qual (PCR) NEGATIVE SARS-CoV-2 RNA (RT-PCR) NEGATIVE 12/09/24 12/09/24 12/09/24 12:42 16:31 17:14 MCV MCH MCHC RDW Plt Count MPV Absolute Nucleated RBC Nucleated RBC % (auto) VBG pH VBG pCO2 VBG pO2 VBG HCO3 VBG O2 Saturation VBG Base Excess Anion Gap 15 15 Estim Creat Clear Calc 67.2 62.8 Estimated GFR > 60 > 60 Random Glucose 123 H 158 H Osmolality 267 L Lactic Acid Calcium 8.8 9.1 Magnesium Urine Osmolality 231 L Ur Random Sodium < 20.0 Ur Random Potassium 36.3 Ur Random Chloride < 20.0 Influenza Type A (PCR) Influenza Type B (PCR) RSV RNA Qual (PCR) SARS-CoV-2 RNA (RT-PCR) 12/10/24 06:54 MCV 83.9 MCH 28.8 MCHC 34.3 RDW 14.4 Plt Count 408 H MPV 8.6 L Absolute Nucleated RBC 0.000 Nucleated RBC % (auto) 0.0 VBG pH VBG pCO2 VBG pO2 VBG HCO3 VBG O2 Saturation VBG Base Excess Anion Gap 12 Estim Creat Clear Calc 65.4 Estimated GFR > 60 Random Glucose 136 H Osmolality Lactic Acid Calcium 8.9 Magnesium 2.0 Urine Osmolality Ur Random Sodium Ur Random Potassium Ur Random Chloride Influenza Type A (PCR) Influenza Type B (PCR) RSV RNA Qual (PCR) SARS-CoV-2 RNA (RT-PCR) Assessment and Plan (1) COPD (chronic obstructive pulmonary disease): Status: Acute Plan 79M PMH COPD, htn presented with weakness,weight loss, sob, found to have suspected lung malignancy Acute hypoxic respiratory failure secondary to postobstructive pneumonia and COPD with acute decompensation Ceftriaxone, azithromycin, Solu-Medrol, DuoNebs Suspected lung malignancy Patient not a good candidate for bronchoscopy, plan for treatment of pneumonia, outpatient PET scan - followed by biopsy of site that would allow for minimal anesthesia Hyponatremia Labs consistent with poor solute intake Resolved Hypertension Lisinopril Moderate protein calorie malnutrition Due to suspected malignancy DVT prophylaxis-Lovenox Do not intubate reason for continued hospitalization: Hypoxia Quality Stroke Does the patient have a stroke diagnosis?: No VTE Prior VTE?: No VTE Risk Level:: Medical - moderate - high VTE Device Contraindication: Treatment Not Indicated VTE Drug Contraindication: N/A - Med Ordered
[2024-12-10] MEDS: cefTRIAXone sodium 1 GM VIAL IVPUSH (11:31)
[2024-12-10] MEDS: Azithromycin 500 MG in 0.9 % Sodium Chloride 250 ML 125 MG IV (11:31)
--- NOTE | 2024-12-10 12:15 | MHC.CM.PN ---
Addendum entered by Louise Mancera 12/10/24 12:24: New lung mass Original Note: IMM 12/10/24 DX Hypo K+ COPD EXAC Patient from home with family. He is independent with all functional mobility at Baseline. He is requiring assist due to weakness+SOB new 3L O2 @ [facility] HCP on file/ PT eval pending DP Home family transport vs STR via BLS
[2024-12-10] MEDS: Enoxaparin Sodium 40 MG/0.4 ML SYRINGE SUBCUT (16:26)
[2024-12-11] VITALS (9 sets, daily range): BP systolic 98–133; BP diastolic 51–68; PULSE 95–110; RESP 18–20; TEMP 36.9–37.2; O2SAT 91–99
[2024-12-11] MEDS: Melatonin 3 MG TABLET 6 MG PO (01:27)
[2024-12-11] MEDS: methylPREDNISolone Sod Succ 40 MG/ML VIAL IVPUSH ×2 (05:10→16:03)
[2024-12-11] MEDS: guaiFEN/Codeine SF 200/20/10ML 10 ML LIQUID 5 ML PO ×3 (05:10→23:16)
[2024-12-11 07:14] LABS: Hematocrit 27.6 % (42.0-52.0); Hemoglobin 9.3 g/dl (14.0-18.0); Mean Corpuscular HGB Conc 33.7 g/dl (31.0-36.0); Mean Platelet Volume 8.6 fL (9.4-12.4); Platelet Count 428 X10*3/uL (160-400); Red Blood Count 3.21 X10*6/uL (4.60-5.80); Red Cell Distribution Width 14.6 % (11.0-16.0); White Blood Count 24.2 X10*3/uL (4.8-10.8)
[2024-12-11 07:28] LABS: Anion Gap 13 (12-20); Blood Urea Nitrogen 32 mg/dL (9-16); Calcium 8.7 mg/dL (8.4-10.2); Carbon Dioxide 27 mmol/L (22-29); Chloride 96 mmol/L (96-108); Creatinine Clr Calc Pharmacy 57.5; Estimated Glomerular Filt Rate > 60; Glucose Random 123 mg/dL (60-115); Potassium 4.7 mmol/L (3.3-5.1); Sodium 131 mmol/L (135-145)
[2024-12-11] MEDS: Albuterol/Iprat 2.5/0.5MG 3 ML AMPUL.NEB INHALE ×3 (08:04→19:37)
[2024-12-11] MEDS: lisinopriL 5 MG TABLET PO (08:07)
[2024-12-11] MEDS: guaiFENesin LA 600 MG TAB.ER.12H PO ×2 (08:07→20:28)
[2024-12-11] MEDS: 0.9 % Sodium Chloride Flush 3 ML SYRINGE IVFLUSH ×3 (08:08→20:30)
[2024-12-11] MEDS: cefTRIAXone sodium 1 GM VIAL IVPUSH (11:11)
[2024-12-11] MEDS: Azithromycin 500 MG in 0.9 % Sodium Chloride 250 ML 125 MG IV (11:12)
--- NOTE | 2024-12-11 12:10 | MHC.CLN ---
F/U PT IS MODERATELY MALNOURISHED SEE FULL CLINICAL NUTRITION ASSESSMENT DATED 12/10/24 PO INTAKE FAIR TO GOOD DIET RX: REGULAR TO INCREASE KCALS RECEIVING ENSURE TID TO INCREASE KCALS PROVIDES 1050KCALS, 60G PROTEIN MONITOR PO INTAKE AND ENCOURAGE SUPPLEMENT
--- NOTE | 2024-12-11 12:43 | HO.PM.IMPN ---
Subjective Subjective Date of Service: 12/11/24 Interval History: a bit better Physical Exam Vital Signs: Vital Signs: Last Vital Signs Temp 98.5 F 12/11/24 11:08 Pulse 97 12/11/24 11:08 Resp 20 12/11/24 11:08 BP 104/57 L 12/11/24 11:08 Pulse Ox 99 12/11/24 11:08 O2 Del Method Nasal Cannula 12/11/24 11:08 O2 Flow Rate 4 12/11/24 11:08 BMI result Body Mass Index 17.6 General: AO X 3, ill, frail Resp: diminished bilateral, accessory muscles used CVS: S1,S2,RRR GI: soft, non tender, non distended Neuro: motor grossly intact, alert Psych: appropriate affect, appropriate insight Objective Data Active Medications Acetaminophen (Acetaminophen 325 Mg Tablet) 650 mg PO Q6H PRN PRN Reason: Pain, Mild 1-3,fever,headache Albuterol/Ipratropium (Albuterol/Iprat 2.5/0.5mg 3 Ml Ampul.Neb) 3 ml INHALE RQ4H WHILE AWAKE [facility] Last Admin: 12/11/24 08:04 Dose: 3 ml Documented By: PRANAY Calcium Carbonate (Calcium Carbonate 750 Mg Tab.Chew) 750 mg PO Q4H PRN PRN Reason: Heartburn Ceftriaxone Sodium (Ceftriaxone Sodium 1 Gm Vial) 1 gm IVPUSH Q24H [facility] Last Admin: 12/11/24 11:11 Dose: 1 gm Documented By: MARCELO Enoxaparin Sodium (Enoxaparin Sodium 40 Mg/0.4 Ml Syringe) 40 mg SUBCUT Q24H [facility] Last Admin: 12/10/24 16:26 Dose: 40 mg Documented By: MARCELO Guaifenesin (Guaifenesin La 600 Mg Tab.Er.12h) 600 mg PO BID [facility] Last Admin: 12/11/24 08:07 Dose: 600 mg Documented By: MARCELO Guaifenesin/Codeine Phosphate (Guaifen/Codeine Sf 200/20/10ml 10 Ml Liquid) 5 ml PO Q6H PRN PRN Reason: Cough Last Admin: 12/11/24 11:12 Dose: 5 ml Documented By: MARCELO Azithromycin 500 mg/ Sodium (Chloride) 250 mls @ 125 mls/hr IV Q24H [facility] Last Admin: 12/11/24 11:12 Dose: 125 mls/hr Documented By: MARCELO Lisinopril (Lisinopril 5 Mg Tablet) 5 mg PO DAILY [facility]; Protocol Last Admin: 12/11/24 08:07 Dose: 5 mg Documented By: MARCELO Loratadine (Loratadine 10 Mg Tablet) 10 mg PO DAILY PRN PRN Reason: Allergy Symptoms Magnesium Hydroxide (Milk Of Magnesia 30 Ml Oral.Susp) 30 ml PO DAILY PRN PRN Reason: Constipation Melatonin (Melatonin 3 Mg Tablet) 6 mg PO BEDTIME PRN PRN Reason: Insomnia Last Admin: 12/11/24 01:27 Dose: 6 mg Documented By: ROBERTO Methylprednisolone Sodium Succinate (Methylprednisolone Sod Succ 40 Mg/Ml Vial) 40 mg IVPUSH Q12H [facility] Last Admin: 12/11/24 05:10 Dose: 40 mg Documented By: ROBERTO Sodium Chloride (0.9 % Sodium Chloride Flush 3 Ml Syringe) 3 ml IVFLUSH QSHIFT [facility] Last Admin: 12/11/24 08:08 Dose: 3 ml Documented By: MARCELO Labs 12/11/24 06:15 12/11/24 06:15 Labs: Laboratory Results - last 24 hr 12/11/24 06:15 MCV 86.0 MCH 29.0 MCHC 33.7 RDW 14.6 Plt Count 428 H MPV 8.6 L Absolute Nucleated RBC 0.000 Nucleated RBC % (auto) 0.0 Anion Gap 13 Estim Creat Clear Calc 57.5 Estimated GFR > 60 Random Glucose 123 H Calcium 8.7 Microbiology Microbiology Results: Microbiology 12/09/24 11:32 Blood Culture - Preliminary Blood - Venous No growth after 24 hours. 12/09/24 11:28 Blood Culture - Preliminary Blood - Venous No growth after 24 hours. Assessment and Plan (1) COPD (chronic obstructive pulmonary disease): Status: Acute Plan 79M PMH COPD, htn presented with weakness,weight loss, sob, found to have suspected lung malignancy Acute hypoxic respiratory failure secondary to postobstructive pneumonia and COPD with acute decompensation Ceftriaxone, azithromycin, Solu-Medrol, DuoNebs Suspected lung malignancy Patient not a good candidate for bronchoscopy, plan for treatment of pneumonia, outpatient PET scan - followed by biopsy of site that would allow for minimal anesthesia Hyponatremia Labs consistent with poor solute intake Resolved Hypertension Lisinopril Moderate protein calorie malnutrition Due to suspected malignancy DVT prophylaxis-Lovenox Do not intubate reason for continued hospitalization: Hypoxia Quality Stroke Does the patient have a stroke diagnosis?: No VTE Prior VTE?: No VTE Risk Level:: Medical - moderate - high VTE Device Contraindication: Treatment Not Indicated VTE Drug Contraindication: N/A - Med Ordered
--- NOTE | 2024-12-11 15:58 | MHC.CM.PN ---
Per MD rounds, pt is not medically cleared to discharge. Discharge is anticipated in 1-2 days. PT eval is pending. DP STR via BLS vs Home with services.
[2024-12-11] MEDS: Enoxaparin Sodium 40 MG/0.4 ML SYRINGE SUBCUT (16:03)
[2024-12-12] VITALS (10 sets, daily range): BP systolic 103–129; BP diastolic 52–75; PULSE 82–110; RESP 16–20; TEMP 36.1–37.1; O2SAT 91–99
[2024-12-12] MEDS: methylPREDNISolone Sod Succ 40 MG/ML VIAL IVPUSH ×2 (04:47→16:05)
[2024-12-12 07:13] LABS: Hematocrit 28.1 % (42.0-52.0); Hemoglobin 9.3 g/dl (14.0-18.0); Mean Corpuscular HGB Conc 33.1 g/dl (31.0-36.0); Mean Corpuscular Hemoglobin 28.9 pg (27.0-33.0); Mean Corpuscular Volume 87.3 fL (80.0-98.0); Mean Platelet Volume 8.3 fL (9.4-12.4); Platelet Count 381 X10*3/uL (160-400); Red Blood Count 3.22 X10*6/uL (4.60-5.80); Red Cell Distribution Width 14.8 % (11.0-16.0); White Blood Count 20.5 X10*3/uL (4.8-10.8)
[2024-12-12 07:25] LABS: Anion Gap 10 (12-20); Blood Urea Nitrogen 36 mg/dL (9-16); Calcium 9.1 mg/dL (8.4-10.2); Carbon Dioxide 29 mmol/L (22-29); Chloride 98 mmol/L (96-108); Estimated Glomerular Filt Rate > 60; Glucose Random 104 mg/dL (60-115); Potassium 4.8 mmol/L (3.3-5.1); Sodium 132 mmol/L (135-145)
[2024-12-12] MEDS: Albuterol/Iprat 2.5/0.5MG 3 ML AMPUL.NEB INHALE ×4 (07:34→19:42)
[2024-12-12] MEDS: lisinopriL 5 MG TABLET PO (08:05)
[2024-12-12] MEDS: 0.9 % Sodium Chloride Flush 3 ML SYRINGE IVFLUSH ×3 (08:05→20:28)
[2024-12-12] MEDS: guaiFENesin LA 600 MG TAB.ER.12H PO ×2 (08:05→20:28)
--- NOTE | 2024-12-12 08:58 | HO.PM.IMPN ---
Subjective Subjective Date of Service: 12/12/24 Interval History: a bit better Physical Exam Vital Signs: Vital Signs: Last Vital Signs Temp 98.8 F 12/12/24 07:15 Pulse 85 12/12/24 07:36 Resp 18 12/12/24 07:36 BP 103/52 L 12/12/24 07:15 Pulse Ox 95 12/12/24 07:15 O2 Del Method Nasal Cannula 12/12/24 07:15 O2 Flow Rate 4 12/12/24 07:15 BMI result Body Mass Index 17.6 General: AO X 3, ill, frail Resp: diminished bilateral, accessory muscles used CVS: S1,S2,RRR GI: soft, non tender, non distended Neuro: motor grossly intact, alert Psych: appropriate affect, appropriate insight Objective Data Active Medications Acetaminophen (Acetaminophen 325 Mg Tablet) 650 mg PO Q6H PRN PRN Reason: Pain, Mild 1-3,fever,headache Albuterol/Ipratropium (Albuterol/Iprat 2.5/0.5mg 3 Ml Ampul.Neb) 3 ml INHALE RQ4H WHILE AWAKE [facility] Last Admin: 12/12/24 07:34 Dose: 3 ml Documented By: PRANAY Calcium Carbonate (Calcium Carbonate 750 Mg Tab.Chew) 750 mg PO Q4H PRN PRN Reason: Heartburn Ceftriaxone Sodium (Ceftriaxone Sodium 1 Gm Vial) 1 gm IVPUSH Q24H [facility] Last Admin: 12/11/24 11:11 Dose: 1 gm Documented By: MARCELO Enoxaparin Sodium (Enoxaparin Sodium 40 Mg/0.4 Ml Syringe) 40 mg SUBCUT Q24H [facility] Last Admin: 12/11/24 16:03 Dose: 40 mg Documented By: MARCELO Guaifenesin (Guaifenesin La 600 Mg Tab.Er.12h) 600 mg PO BID [facility] Last Admin: 12/12/24 08:05 Dose: 600 mg Documented By: MARCELA Guaifenesin/Codeine Phosphate (Guaifen/Codeine Sf 200/20/10ml 10 Ml Liquid) 5 ml PO Q6H PRN PRN Reason: Cough Last Admin: 12/11/24 23:16 Dose: 5 ml Documented By: ELIZABETH Azithromycin 500 mg/ Sodium (Chloride) 250 mls @ 125 mls/hr IV Q24H [facility] Last Infusion: 12/11/24 13:26 Dose: Infused Documented By: MARCELO Lisinopril (Lisinopril 5 Mg Tablet) 5 mg PO DAILY [facility]; Protocol Last Admin: 12/12/24 08:05 Dose: 5 mg Documented By: MARCELA Loratadine (Loratadine 10 Mg Tablet) 10 mg PO DAILY PRN PRN Reason: Allergy Symptoms Magnesium Hydroxide (Milk Of Magnesia 30 Ml Oral.Susp) 30 ml PO DAILY PRN PRN Reason: Constipation Melatonin (Melatonin 3 Mg Tablet) 6 mg PO BEDTIME PRN PRN Reason: Insomnia Last Admin: 12/11/24 01:27 Dose: 6 mg Documented By: ROBERTO Methylprednisolone Sodium Succinate (Methylprednisolone Sod Succ 40 Mg/Ml Vial) 40 mg IVPUSH Q12H [facility] Last Admin: 12/12/24 04:47 Dose: 40 mg Documented By: ELIZABETH Sodium Chloride (0.9 % Sodium Chloride Flush 3 Ml Syringe) 3 ml IVFLUSH QSHIFT [facility] Last Admin: 12/12/24 08:05 Dose: 3 ml Documented By: MARCELA Labs 12/12/24 06:45 12/12/24 06:45 Labs: Laboratory Results - last 24 hr 12/12/24 06:45 MCV 87.3 MCH 28.9 MCHC 33.1 RDW 14.8 Plt Count 381 MPV 8.3 L Absolute Nucleated RBC 0.000 Nucleated RBC % (auto) 0.0 Anion Gap 10 L Estim Creat Clear Calc 62.0 Estimated GFR > 60 Random Glucose 104 Calcium 9.1 Microbiology Microbiology Results: Microbiology 12/09/24 11:32 Blood Culture - Preliminary Blood - Venous No growth after 48 hours. 12/09/24 11:28 Blood Culture - Preliminary Blood - Venous No growth after 48 hours. Assessment and Plan (1) COPD (chronic obstructive pulmonary disease): Status: Acute Plan 79M PMH COPD, htn presented with weakness,weight loss, sob, found to have suspected lung malignancy Acute hypoxic respiratory failure secondary to postobstructive pneumonia and COPD with acute decompensation continue Ceftriaxone, azithromycin, Solu-Medrol, DuoNebs still desatting to low 80s on room air Suspected lung malignancy Patient not a good candidate for bronchoscopy, plan for treatment of pneumonia, outpatient PET scan - followed by biopsy of site that would allow for minimal anesthesia Hyponatremia Labs consistent with poor solute intake Resolved Hypertension Lisinopril Moderate protein calorie malnutrition Due to suspected malignancy DVT prophylaxis-Lovenox Do not intubate reason for continued hospitalization: Hypoxia Quality Stroke Does the patient have a stroke diagnosis?: No VTE Prior VTE?: No VTE Risk Level:: Medical - moderate - high VTE Device Contraindication: Treatment Not Indicated VTE Drug Contraindication: N/A - Med Ordered
[2024-12-12] MEDS: guaiFEN/Codeine SF 200/20/10ML 10 ML LIQUID 5 ML PO ×2 (11:45→20:28)
[2024-12-12] MEDS: cefTRIAXone sodium 1 GM VIAL IVPUSH (11:46)
[2024-12-12] MEDS: Azithromycin 500 MG in 0.9 % Sodium Chloride 250 ML 125 MG IV (11:52)
[2024-12-12] MEDS: Enoxaparin Sodium 40 MG/0.4 ML SYRINGE SUBCUT (16:05)
[2024-12-12] MEDS: Acetaminophen 325 MG TABLET 650 MG PO (20:27)
[2024-12-12] MEDS: Melatonin 3 MG TABLET 6 MG PO (20:27)
[2024-12-13] VITALS (9 sets, daily range): BP systolic 107–132; BP diastolic 56–76; PULSE 91–109; RESP 16–22; TEMP 35.9–37.3; O2SAT 90–94
[2024-12-13] MEDS: methylPREDNISolone Sod Succ 40 MG/ML VIAL IVPUSH ×2 (05:46→16:03)
[2024-12-13] MEDS: Albuterol/Iprat 2.5/0.5MG 3 ML AMPUL.NEB INHALE ×3 (07:34→18:44)
[2024-12-13] MEDS: lisinopriL 5 MG TABLET PO (08:04)
[2024-12-13] MEDS: guaiFENesin LA 600 MG TAB.ER.12H PO ×2 (08:04→19:30)
[2024-12-13] MEDS: 0.9 % Sodium Chloride Flush 3 ML SYRINGE IVFLUSH ×3 (08:09→19:31)
[2024-12-13 09:41] LABS: Hematocrit 32.1 % (42.0-52.0); Hemoglobin 10.6 g/dl (14.0-18.0); Mean Corpuscular Hemoglobin 28.5 pg (27.0-33.0); Mean Corpuscular Volume 86.3 fL (80.0-98.0); Mean Platelet Volume 8.2 fL (9.4-12.4); Platelet Count 441 X10*3/uL (160-400); Red Blood Count 3.72 X10*6/uL (4.60-5.80); White Blood Count 17.5 X10*3/uL (4.8-10.8)
[2024-12-13 09:54] LABS: Anion Gap 13 (12-20); Blood Urea Nitrogen 31 mg/dL (9-16); Calcium 9.4 mg/dL (8.4-10.2); Carbon Dioxide 29 mmol/L (22-29); Chloride 94 mmol/L (96-108); Creatinine Clr Calc Pharmacy 63.6; Estimated Glomerular Filt Rate > 60; Glucose Random 115 mg/dL (60-115); Potassium 4.3 mmol/L (3.3-5.1); Sodium 132 mmol/L (135-145)
--- NOTE | 2024-12-13 10:24 | HO.PM.IMPN ---
Subjective Subjective Date of Service: 12/13/24 Interval History: frail, on room air at rest but desats with minimal exertion Physical Exam Vital Signs: Vital Signs: Last Vital Signs Temp 99.2 F 12/13/24 07:17 Pulse 102 H 12/13/24 07:34 Resp 20 12/13/24 07:34 BP 127/71 12/13/24 07:17 Pulse Ox 93 12/13/24 07:17 O2 Del Method Room Air 12/13/24 07:17 O2 Flow Rate 1 12/12/24 15:37 BMI result Body Mass Index 17.6 General: AO X 3, ill, frail Resp: diminished bilateral, accessory muscles used CVS: S1,S2,RRR GI: soft, non tender, non distended Neuro: motor grossly intact, alert Psych: appropriate affect, appropriate insight Objective Data Active Medications Acetaminophen (Acetaminophen 325 Mg Tablet) 650 mg PO Q6H PRN PRN Reason: Pain, Mild 1-3,fever,headache Last Admin: 12/12/24 20:27 Dose: 650 mg Documented By: LIAMZEErnestina Albuterol/Ipratropium (Albuterol/Iprat 2.5/0.5mg 3 Ml Ampul.Neb) 3 ml INHALE RQ4H WHILE AWAKE [facility] Last Admin: 12/13/24 07:34 Dose: 3 ml Documented By: ISAIAH Calcium Carbonate (Calcium Carbonate 750 Mg Tab.Chew) 750 mg PO Q4H PRN PRN Reason: Heartburn Ceftriaxone Sodium (Ceftriaxone Sodium 1 Gm Vial) 1 gm IVPUSH Q24H [facility] Last Admin: 12/12/24 11:46 Dose: 1 gm Documented By: MARCELA Enoxaparin Sodium (Enoxaparin Sodium 40 Mg/0.4 Ml Syringe) 40 mg SUBCUT Q24H [facility] Last Admin: 12/12/24 16:05 Dose: 40 mg Documented By: MARCELA Guaifenesin (Guaifenesin La 600 Mg Tab.Er.12h) 600 mg PO BID [facility] Last Admin: 12/13/24 08:04 Dose: 600 mg Documented By: MARCELA Guaifenesin/Codeine Phosphate (Guaifen/Codeine Sf 200/20/10ml 10 Ml Liquid) 5 ml PO Q6H PRN PRN Reason: Cough Last Admin: 12/12/24 20:28 Dose: 5 ml Documented By: LUCHO Azithromycin 500 mg/ Sodium (Chloride) 250 mls @ 125 mls/hr IV Q24H [facility] Last Infusion: 12/12/24 14:32 Dose: Infused Documented By: MARCELA Lisinopril (Lisinopril 5 Mg Tablet) 5 mg PO DAILY [facility]; Protocol Last Admin: 12/13/24 08:04 Dose: 5 mg Documented By: MARCELA Loratadine (Loratadine 10 Mg Tablet) 10 mg PO DAILY PRN PRN Reason: Allergy Symptoms Magnesium Hydroxide (Milk Of Magnesia 30 Ml Oral.Susp) 30 ml PO DAILY PRN PRN Reason: Constipation Melatonin (Melatonin 3 Mg Tablet) 6 mg PO BEDTIME PRN PRN Reason: Insomnia Last Admin: 12/12/24 20:27 Dose: 6 mg Documented By: LUCHO Methylprednisolone Sodium Succinate (Methylprednisolone Sod Succ 40 Mg/Ml Vial) 40 mg IVPUSH Q12H [facility] Last Admin: 12/13/24 05:46 Dose: 40 mg Documented By: LUCHO Sodium Chloride (0.9 % Sodium Chloride Flush 3 Ml Syringe) 3 ml IVFLUSH QSHIFT [facility] Last Admin: 12/13/24 08:09 Dose: 3 ml Documented By: MARCELA Labs 12/13/24 08:56 12/13/24 08:56 Labs: Laboratory Results - last 24 hr 12/13/24 08:56 MCV 86.3 MCH 28.5 MCHC 33.0 RDW 15.0 Plt Count 441 H MPV 8.2 L Absolute Nucleated RBC 0.000 Nucleated RBC % (auto) 0.0 Anion Gap 13 Estim Creat Clear Calc 63.6 Estimated GFR > 60 Random Glucose 115 Calcium 9.4 Assessment and Plan (1) COPD (chronic obstructive pulmonary disease): Status: Acute Plan 79M PMH COPD, htn presented with weakness,weight loss, sob, found to have suspected lung malignancy Acute hypoxic respiratory failure secondary to postobstructive pneumonia and COPD with acute decompensation continue Ceftriaxone, azithromycin, Solu-Medrol, DuoNebs still desatting to low 80s on room air on exertion Suspected lung malignancy Patient not a good candidate for bronchoscopy, plan for treatment of pneumonia, outpatient PET scan - followed by biopsy of site that would allow for minimal anesthesia Hyponatremia Labs consistent with poor solute intake Resolved Hypertension Lisinopril Moderate protein calorie malnutrition Due to suspected malignancy DVT prophylaxis-Lovenox Do not intubate reason for continued hospitalization: Hypoxia Quality Stroke Does the patient have a stroke diagnosis?: No VTE Prior VTE?: No VTE Risk Level:: Medical - moderate - high VTE Device Contraindication: Treatment Not Indicated VTE Drug Contraindication: N/A - Med Ordered
--- NOTE | 2024-12-13 10:51 | MHC.CM.PN ---
Per ROUNDS discussion, Patient is not yet medically cleared for dc (2 IV ABT, IV Solu Medol); Patient may benefit from a PT Eval to assist with disposition and CM will follow.
[2024-12-13] MEDS: guaiFEN/Codeine SF 200/20/10ML 10 ML LIQUID 5 ML PO (11:16)
[2024-12-13] MEDS: cefTRIAXone sodium 1 GM VIAL IVPUSH (11:17)
[2024-12-13] MEDS: Azithromycin 500 MG in 0.9 % Sodium Chloride 250 ML 125 MG IV (11:17)
--- NOTE | 2024-12-13 12:12 | MHC.CLN ---
F/U PT IS MODERATELY MALNOURISHED PO INTAKE 75-100% DIET RX: REGULAR RECEIVING ENSURE TID TO INCREASE KCALS PROVIDES 1050KCALS, 60G PROTEIN MONITOR PO INTAKE AND ENCOURAGE SUPPLEMENT
[2024-12-13] MEDS: Enoxaparin Sodium 40 MG/0.4 ML SYRINGE SUBCUT (16:03)
[2024-12-13] MEDS: Melatonin 3 MG TABLET 6 MG PO (19:30)
[2024-12-14] VITALS (7 sets, daily range): BP systolic 97–142; BP diastolic 57–78; PULSE 95–113; RESP 18–22; TEMP 36.6–37.3; O2SAT 90–93
[2024-12-14] MEDS: methylPREDNISolone Sod Succ 40 MG/ML VIAL IVPUSH ×2 (04:30→16:07)
[2024-12-14] MEDS: lisinopriL 5 MG TABLET PO (08:35)
[2024-12-14] MEDS: guaiFENesin LA 600 MG TAB.ER.12H PO ×2 (08:35→19:27)
[2024-12-14] MEDS: 0.9 % Sodium Chloride Flush 3 ML SYRINGE IVFLUSH ×3 (08:36→19:35)
--- NOTE | 2024-12-14 09:30 | P.PNIM_ITS ---
Subjective Subjective Date of Service: 12/14/24 Interval History: frail, on room air at rest but desats with minimal exertion Physical Exam 2 Vital Signs: Vital Signs: Last Vital Signs Temp 98.7 F 12/14/24 07:58 Pulse 95 12/14/24 07:58 Resp 22 H 12/14/24 07:58 BP 119/66 12/14/24 07:58 Pulse Ox 91 L 12/14/24 07:58 O2 Del Method Room Air 12/14/24 07:58 O2 Flow Rate 1 12/12/24 15:37 BMI result Body Mass Index 17.6 General: AO X 3, ill, frail Resp: diminished bilateral, accessory muscles used CVS: S1,S2,RRR GI: soft, non tender, non distended Neuro: motor grossly intact, alert Psych: appropriate affect, appropriate insight Objective Data Active Medications Acetaminophen (Acetaminophen 325 Mg Tablet) 650 mg PO Q6H PRN PRN Reason: Pain, Mild 1-3,fever,headache Last Admin: 12/12/24 20:27 Dose: 650 mg Documented By: LIAMZEErnestina Albuterol/Ipratropium (Albuterol/Iprat 2.5/0.5mg 3 Ml Ampul.Neb) 3 ml INHALE RQ4H WHILE AWAKE [facility] Last Admin: 12/14/24 07:44 Dose: Not Given Documented By: NOMI Non-Admin Reason: Patient Asleep Calcium Carbonate (Calcium Carbonate 750 Mg Tab.Chew) 750 mg PO Q4H PRN PRN Reason: Heartburn Ceftriaxone Sodium (Ceftriaxone Sodium 1 Gm Vial) 1 gm IVPUSH Q24H [facility] Last Admin: 12/13/24 11:17 Dose: 1 gm Documented By: MARCELA Enoxaparin Sodium (Enoxaparin Sodium 40 Mg/0.4 Ml Syringe) 40 mg SUBCUT Q24H [facility] Last Admin: 12/13/24 16:03 Dose: 40 mg Documented By: MARCELA Guaifenesin (Guaifenesin La 600 Mg Tab.Er.12h) 600 mg PO BID [facility] Last Admin: 12/14/24 08:35 Dose: 600 mg Documented By: MARCELA Guaifenesin/Codeine Phosphate (Guaifen/Codeine Sf 200/20/10ml 10 Ml Liquid) 5 ml PO Q6H PRN PRN Reason: Cough Last Admin: 12/13/24 11:16 Dose: 5 ml Documented By: MARCELA Azithromycin 500 mg/ Sodium (Chloride) 250 mls @ 125 mls/hr IV Q24H [facility] Last Infusion: 12/13/24 13:45 Dose: Infused Documented By: MARCELA Lisinopril (Lisinopril 5 Mg Tablet) 5 mg PO DAILY [facility]; Protocol Last Admin: 12/14/24 08:35 Dose: 5 mg Documented By: MARCELA Loratadine (Loratadine 10 Mg Tablet) 10 mg PO DAILY PRN PRN Reason: Allergy Symptoms Magnesium Hydroxide (Milk Of Magnesia 30 Ml Oral.Susp) 30 ml PO DAILY PRN PRN Reason: Constipation Melatonin (Melatonin 3 Mg Tablet) 6 mg PO BEDTIME PRN PRN Reason: Insomnia Last Admin: 12/13/24 19:30 Dose: 6 mg Documented By: SANDRA Methylprednisolone Sodium Succinate (Methylprednisolone Sod Succ 40 Mg/Ml Vial) 40 mg IVPUSH Q12H [facility] Last Admin: 12/14/24 04:30 Dose: 40 mg Documented By: SANDRA Sodium Chloride (0.9 % Sodium Chloride Flush 3 Ml Syringe) 3 ml IVFLUSH QSHIFT [facility] Last Admin: 12/14/24 08:36 Dose: 3 ml Documented By: MARCELA Labs 12/13/24 08:56 12/13/24 08:56 Labs: Laboratory Results - last 24 hr 12/13/24 08:56 MCV 86.3 MCH 28.5 MCHC 33.0 RDW 15.0 Plt Count 441 H MPV 8.2 L Absolute Nucleated RBC 0.000 Nucleated RBC % (auto) 0.0 Anion Gap 13 Estim Creat Clear Calc 63.6 Estimated GFR > 60 Random Glucose 115 Calcium 9.4 Assessment and Plan (1) COPD (chronic obstructive pulmonary disease): Status: Acute Plan 79M PMH COPD, htn presented with weakness,weight loss, sob, found to have suspected lung malignancy Acute hypoxic respiratory failure secondary to postobstructive pneumonia and COPD with acute decompensation continue Ceftriaxone, azithromycin, Solu-Medrol, DuoNebs still desatting to low 80s on room air on exertion Suspected lung malignancy Patient not a good candidate for bronchoscopy, plan for treatment of pneumonia, outpatient PET scan - followed by biopsy of site that would allow for minimal anesthesia Hyponatremia Labs consistent with poor solute intake Resolved Hypertension Lisinopril Moderate protein calorie malnutrition Due to suspected malignancy DVT prophylaxis-Lovenox Do not intubate reason for continued hospitalization: Hypoxia Quality Stroke Does the patient have a stroke diagnosis?: No VTE Prior VTE?: No VTE Risk Level:: Medical - moderate - high VTE Device Contraindication: Treatment Not Indicated VTE Drug Contraindication: N/A - Med Ordered
[2024-12-14] MEDS: Albuterol/Iprat 2.5/0.5MG 3 ML AMPUL.NEB INHALE ×2 (11:17→18:41)
[2024-12-14] MEDS: Lidocaine 4 % Patch ADH..PATCH 1 PATCH TRANSDERMA (12:10)
[2024-12-14] MEDS: cefTRIAXone sodium 1 GM VIAL IVPUSH (12:10)
[2024-12-14] MEDS: Azithromycin 500 MG in 0.9 % Sodium Chloride 250 ML 125 MG IV (12:17)
[2024-12-14] MEDS: Enoxaparin Sodium 40 MG/0.4 ML SYRINGE SUBCUT (16:07)
[2024-12-15] VITALS (10 sets, daily range): BP systolic 101–149; BP diastolic 54–88; PULSE 88–115; RESP 17–26; TEMP 36.4–37.2; O2SAT 91–99
[2024-12-15] MEDS: methylPREDNISolone Sod Succ 40 MG/ML VIAL IVPUSH ×2 (04:21→16:16)
[2024-12-15] MEDS: Albuterol/Iprat 2.5/0.5MG 3 ML AMPUL.NEB INHALE ×4 (07:54→19:12)
[2024-12-15] MEDS: Lidocaine 4 % Patch ADH..PATCH 1 PATCH TRANSDERMA (08:25)
[2024-12-15] MEDS: guaiFENesin LA 600 MG TAB.ER.12H PO ×2 (08:25→21:37)
[2024-12-15] MEDS: lisinopriL 5 MG TABLET PO (08:25)
[2024-12-15] MEDS: 0.9 % Sodium Chloride Flush 3 ML SYRINGE IVFLUSH ×3 (08:26→21:44)
--- NOTE | 2024-12-15 08:35 | P.PNIM_ITS ---
Subjective Subjective Date of Service: 12/15/24 Interval History: frail, on room air at rest but desats with minimal exertion Physical Exam 2 Vital Signs: Vital Signs: Last Vital Signs Temp 97.7 F 12/15/24 08:00 Pulse 98 12/15/24 08:00 Resp 22 H 12/15/24 08:00 BP 149/75 H 12/15/24 08:00 Pulse Ox 93 12/15/24 08:00 O2 Del Method Room Air 12/15/24 08:00 O2 Flow Rate 1 12/12/24 15:37 BMI result Body Mass Index 17.6 General: AO X 3, ill, frail Resp: diminished bilateral, accessory muscles used CVS: S1,S2,RRR GI: soft, non tender, non distended Neuro: motor grossly intact, alert Psych: appropriate affect, appropriate insight Objective Data Active Medications Acetaminophen (Acetaminophen 325 Mg Tablet) 650 mg PO Q6H PRN PRN Reason: Pain, Mild 1-3,fever,headache Last Admin: 12/12/24 20:27 Dose: 650 mg Documented By: HIMANSHU-JOZEB Albuterol/Ipratropium (Albuterol/Iprat 2.5/0.5mg 3 Ml Ampul.Neb) 3 ml INHALE RQ4H WHILE AWAKE [facility] Last Admin: 12/15/24 07:54 Dose: 3 ml Documented By: JOSEPH Calcium Carbonate (Calcium Carbonate 750 Mg Tab.Chew) 750 mg PO Q4H PRN PRN Reason: Heartburn Ceftriaxone Sodium (Ceftriaxone Sodium 1 Gm Vial) 1 gm IVPUSH Q24H [facility] Last Admin: 12/14/24 12:10 Dose: 1 gm Documented By: MARCELA Enoxaparin Sodium (Enoxaparin Sodium 40 Mg/0.4 Ml Syringe) 40 mg SUBCUT Q24H [facility] Last Admin: 12/14/24 16:07 Dose: 40 mg Documented By: MARCELA Guaifenesin (Guaifenesin La 600 Mg Tab.Er.12h) 600 mg PO BID [facility] Last Admin: 12/15/24 08:25 Dose: 600 mg Documented By: MARCELA Azithromycin 500 mg/ Sodium (Chloride) 250 mls @ 125 mls/hr IV Q24H [facility] Last Infusion: 12/14/24 15:05 Dose: Infused Documented By: MARCELA Lidocaine (Lidocaine 4 % Patch Adh..Patch) 1 patch TRANSDERMA DAILY [facility]; Protocol Last Admin: 12/15/24 08:25 Dose: 1 patch Documented By: MARCELA Lisinopril (Lisinopril 5 Mg Tablet) 5 mg PO DAILY [facility]; Protocol Last Admin: 12/15/24 08:25 Dose: 5 mg Documented By: MARCELA Loratadine (Loratadine 10 Mg Tablet) 10 mg PO DAILY PRN PRN Reason: Allergy Symptoms Magnesium Hydroxide (Milk Of Magnesia 30 Ml Oral.Susp) 30 ml PO DAILY PRN PRN Reason: Constipation Melatonin (Melatonin 3 Mg Tablet) 6 mg PO BEDTIME PRN PRN Reason: Insomnia Last Admin: 12/13/24 19:30 Dose: 6 mg Documented By: SANDRA Methylprednisolone Sodium Succinate (Methylprednisolone Sod Succ 40 Mg/Ml Vial) 40 mg IVPUSH Q12H [facility] Last Admin: 12/15/24 04:21 Dose: 40 mg Documented By: BENJI Sodium Chloride (0.9 % Sodium Chloride Flush 3 Ml Syringe) 3 ml IVFLUSH QSHIFT [facility] Last Admin: 12/15/24 08:26 Dose: 3 ml Documented By: MARCELA Labs 12/13/24 08:56 12/13/24 08:56 Microbiology Microbiology Results: Microbiology 12/09/24 11:32 Blood Culture - Final Blood - Venous No growth after 5 days. 12/09/24 11:28 Blood Culture - Final Blood - Venous No growth after 5 days. Assessment and Plan (1) COPD (chronic obstructive pulmonary disease): Status: Acute Plan 79M PMH COPD, htn presented with weakness,weight loss, sob, found to have suspected lung malignancy Acute hypoxic respiratory failure secondary to postobstructive pneumonia and COPD with acute decompensation continue Ceftriaxone, azithromycin, Steroids, DuoNebs on room air at rest, home o2 eval for exertion Suspected lung malignancy Patient not a good candidate for bronchoscopy, plan for treatment of pneumonia, outpatient PET scan - followed by biopsy of site that would allow for minimal anesthesia Hyponatremia Labs consistent with poor solute intake Resolved Hypertension Lisinopril Moderate protein calorie malnutrition Due to suspected malignancy DVT prophylaxis-Lovenox Do not intubate reason for continued hospitalization: dispo plannning Quality Stroke Does the patient have a stroke diagnosis?: No VTE Prior VTE?: No VTE Risk Level:: Medical - moderate - high VTE Device Contraindication: Treatment Not Indicated VTE Drug Contraindication: N/A - Med Ordered
--- NOTE | 2024-12-15 08:51 | W.MHC.ACPN ---
Advanced Care Planning Note Advanced Care Planning Note Discussed with: family member(s) Time spent (in minutes): 18 Narrative: Per request of patient discussed with his over the phone regarding goals of care and diangosis of suspected lung cancer. Decision made to change plan to hospice at home, we will forego further workup with PET scan and biopsy. Problems Discussed (1) COPD (chronic obstructive pulmonary disease):
--- NOTE | 2024-12-15 09:42 | PC.RT ---
RT walked w/ pt. Pt O2 requirements are RA at rest and 2L O2 w/ ambulation. MD aware. Pt undergoing hospice consults.
[2024-12-15] MEDS: cefTRIAXone sodium 1 GM VIAL IVPUSH (11:38)
[2024-12-15] MEDS: Azithromycin 500 MG in 0.9 % Sodium Chloride 250 ML 125 MG IV (11:38)
--- NOTE | 2024-12-15 14:39 | MHC.CM.PN ---
Hospice referral placed per MD request, requesting hospice info session. Pts would like to speak with the pt about hospice prior to staff speaking with him.
[2024-12-15] MEDS: Enoxaparin Sodium 40 MG/0.4 ML SYRINGE SUBCUT (16:15)
[2024-12-15] MEDS: ondansetron HCL 4 MG/2 ML VIAL IVPUSH (16:20)
[2024-12-15] MEDS: Morphine Sulfate 2 MG/ML CARTRIDGE 1 MG IVPUSH (17:10)
[2024-12-16 03:26] VITALS: BP 138/72; PULSE 98; RESP 18; TEMP 36.8; O2SAT 96
[2024-12-16] MEDS: methylPREDNISolone Sod Succ 40 MG/ML VIAL IVPUSH ×2 (04:15→16:07)
[2024-12-16 07:56] VITALS: BP 123/80; PULSE 98; RESP 18; TEMP 36.8; O2SAT 93
[2024-12-16] MEDS: lisinopriL 5 MG TABLET PO (08:39)
[2024-12-16] MEDS: guaiFENesin LA 600 MG TAB.ER.12H PO ×2 (08:39→20:00)
[2024-12-16] MEDS: Lidocaine 4 % Patch ADH..PATCH 1 PATCH TRANSDERMA (08:39)
[2024-12-16] MEDS: 0.9 % Sodium Chloride Flush 3 ML SYRINGE IVFLUSH ×2 (08:40→20:03)
--- NOTE | 2024-12-16 09:08 | P.PNIM_ITS ---
Subjective Subjective Date of Service: 12/16/24 Interval History: frail, on room air at rest but desats with minimal exertion Physical Exam 2 Vital Signs: Vital Signs: Last Vital Signs Temp 98.2 F 12/16/24 07:56 Pulse 98 12/16/24 07:56 Resp 18 12/16/24 07:56 BP 123/80 12/16/24 07:56 Pulse Ox 93 12/16/24 07:56 O2 Del Method Room Air 12/16/24 07:56 O2 Flow Rate 1 12/12/24 15:37 BMI result Body Mass Index 17.6 General: AO X 3, ill, frail Resp: diminished bilateral, accessory muscles used CVS: S1,S2,RRR GI: soft, non tender, non distended Neuro: motor grossly intact, alert Psych: appropriate affect, appropriate insight Objective Data Active Medications Acetaminophen (Acetaminophen 325 Mg Tablet) 650 mg PO Q6H PRN PRN Reason: Pain, Mild 1-3,fever,headache Last Admin: 12/12/24 20:27 Dose: 650 mg Documented By: LUCHO Albuterol/Ipratropium (Albuterol/Iprat 2.5/0.5mg 3 Ml Ampul.Neb) 3 ml INHALE RQ4H WHILE AWAKE [facility] Last Admin: 12/16/24 07:50 Dose: Not Given Documented By: ISAIAH Non-Admin Reason: Patient Asleep Calcium Carbonate (Calcium Carbonate 750 Mg Tab.Chew) 750 mg PO Q4H PRN PRN Reason: Heartburn Ceftriaxone Sodium (Ceftriaxone Sodium 1 Gm Vial) 1 gm IVPUSH Q24H [facility] Last Admin: 12/15/24 11:38 Dose: 1 gm Documented By: MARCELA Enoxaparin Sodium (Enoxaparin Sodium 40 Mg/0.4 Ml Syringe) 40 mg SUBCUT Q24H [facility] Last Admin: 12/15/24 16:15 Dose: 40 mg Documented By: MARCELA Guaifenesin (Guaifenesin La 600 Mg Tab.Er.12h) 600 mg PO BID [facility] Last Admin: 12/16/24 08:39 Dose: 600 mg Documented By: EDY Azithromycin 500 mg/ Sodium (Chloride) 250 mls @ 125 mls/hr IV Q24H [facility] Last Infusion: 12/15/24 14:34 Dose: Infused Documented By: MARCELA Lidocaine (Lidocaine 4 % Patch Adh..Patch) 1 patch TRANSDERMA DAILY [facility]; Protocol Last Admin: 12/16/24 08:39 Dose: 1 patch Documented By: EDY Lisinopril (Lisinopril 5 Mg Tablet) 5 mg PO DAILY [facility]; Protocol Last Admin: 12/16/24 08:39 Dose: 5 mg Documented By: EDY Loratadine (Loratadine 10 Mg Tablet) 10 mg PO DAILY PRN PRN Reason: Allergy Symptoms Magnesium Hydroxide (Milk Of Magnesia 30 Ml Oral.Susp) 30 ml PO DAILY PRN PRN Reason: Constipation Melatonin (Melatonin 3 Mg Tablet) 6 mg PO BEDTIME PRN PRN Reason: Insomnia Last Admin: 12/13/24 19:30 Dose: 6 mg Documented By: SANDRA Methylprednisolone Sodium Succinate (Methylprednisolone Sod Succ 40 Mg/Ml Vial) 40 mg IVPUSH Q12H [facility] Last Admin: 12/16/24 04:15 Dose: 40 mg Documented By: LUCHO Morphine Sulfate (Morphine Sulfate 2 Mg/Ml Cartridge) 1 mg IVPUSH Q4H PRN; Protocol PRN Reason: sob Last Admin: 12/15/24 17:10 Dose: 1 mg Documented By: MARCELA Ondansetron HCl (Ondansetron Hcl 4 Mg/2 Ml Vial) 4 mg IVPUSH Q6H PRN PRN Reason: Nausea Last Admin: 12/15/24 16:20 Dose: 4 mg Documented By: MARCELA Sodium Chloride (0.9 % Sodium Chloride Flush 3 Ml Syringe) 3 ml IVFLUSH QSHIFT [facility]PLACED [facility] Last Admin: 12/16/24 08:40 Dose: 3 ml Documented By: EDY Labs 12/13/24 08:56 12/13/24 08:56 Assessment and Plan (1) COPD (chronic obstructive pulmonary disease): Status: Acute Plan 79M PMH COPD, htn presented with weakness,weight loss, sob, found to have suspected lung malignancy Acute hypoxic respiratory failure secondary to postobstructive pneumonia and COPD with acute decompensation continue Ceftriaxone, azithromycin, Steroids, DuoNebs on room air at rest, home o2 eval for exertion Suspected lung malignancy Patient not a good candidate for bronchoscopy, initially plan for treatment of pneumonia, outpatient PET scan - followed by biopsy of site that would allow for minimal anesthesia, however, patient and family may defer further work up and transition to hospice care at home Hyponatremia Labs consistent with poor solute intake Resolved Hypertension Lisinopril Moderate protein calorie malnutrition Due to suspected malignancy DVT prophylaxis-Lovenox Do not intubate reason for continued hospitalization: dispo plannning Quality Stroke Does the patient have a stroke diagnosis?: No VTE Prior VTE?: No VTE Risk Level:: Medical - moderate - high VTE Device Contraindication: Treatment Not Indicated VTE Drug Contraindication: N/A - Med Ordered
[2024-12-16] MEDS: cefTRIAXone sodium 1 GM VIAL IVPUSH (11:09)
[2024-12-16] MEDS: Azithromycin 500 MG in 0.9 % Sodium Chloride 250 ML 125 MG IV (11:09)
[2024-12-16] MEDS: Albuterol/Iprat 2.5/0.5MG 3 ML AMPUL.NEB INHALE (11:25)
[2024-12-16 11:33] VITALS: PULSE 88; RESP 18; O2SAT 93
--- NOTE | 2024-12-16 11:39 | MHC.CM.PN ---
Addendum entered by Deidra Coreas 12/16/24 14:01: CM met with Patient's outside Patient's room; she has had a chance to speak with Patient regarding home with Hospice and both are interested in [facility]. CM has notified Hospice to call and arrange a time for the Informational. CM will follow. Original Note: CM left a detailed message for Patient's /Sheila at listed #, requesting an update as to whether or not she has had the opportunity to speak with Patient regarding home with Hospice plan and if this is something they would like to pursue. CM awaits a return call from Sheila.
[2024-12-16] MEDS: Morphine Sulfate 2 MG/ML CARTRIDGE 1 MG IVPUSH (11:58)
--- NOTE | 2024-12-16 13:52 | MHC.CLN ---
F/U PT IS MODERATELY MALNOURISHED PO INTAKE VARIABLE RANGING FROM 25-100% DIET RX: REGULAR RECEIVING ENSURE TID TO INCREASE KCALS PROVIDES 1050KCALS, 60G PROTEIN WITH 100% ACCEPTANCE MONITOR PO INTAKE AND ENCOURAGE SUPPLEMENT
[2024-12-16 15:26] VITALS: BP 99/61; PULSE 104; RESP 18; TEMP 36.6; O2SAT 95
[2024-12-16] MEDS: Enoxaparin Sodium 40 MG/0.4 ML SYRINGE SUBCUT (16:07)
[2024-12-16 20:20] VITALS: BP 116/56; PULSE 109; RESP 12; TEMP 36.9; O2SAT 91
[2024-12-17 03:08] VITALS: BP 124/74; PULSE 94; RESP 18; TEMP 36.5; O2SAT 93
[2024-12-17] MEDS: methylPREDNISolone Sod Succ 40 MG/ML VIAL IVPUSH (05:49)
[2024-12-17 07:01] VITALS: BP 142/75; PULSE 91; RESP 18; TEMP 36.8
[2024-12-17] MEDS: lisinopriL 5 MG TABLET PO (08:55)
[2024-12-17] MEDS: guaiFENesin LA 600 MG TAB.ER.12H PO ×2 (08:55→20:00)
[2024-12-17] MEDS: Lidocaine 4 % Patch ADH..PATCH 1 PATCH TRANSDERMA (08:56)
[2024-12-17] MEDS: 0.9 % Sodium Chloride Flush 3 ML SYRINGE IVFLUSH ×3 (08:58→20:00)
[2024-12-17] MEDS: cefTRIAXone sodium 1 GM VIAL IVPUSH (08:58)
--- NOTE | 2024-12-17 09:41 | P.PNIM_ITS ---
Subjective Subjective Date of Service: 12/17/24 Interval History: no complaints Physical Exam 2 Vital Signs: Vital Signs: Last Vital Signs Temp 98.3 F 12/17/24 07:01 Pulse 91 12/17/24 07:01 Resp 18 12/17/24 07:01 BP 142/75 H 12/17/24 07:01 Pulse Ox 93 12/17/24 03:08 O2 Del Method Room Air 12/17/24 07:01 O2 Flow Rate 1 12/12/24 15:37 BMI result Body Mass Index 17.6 General: AO X 3, ill, frail Resp: diminished bilateral, accessory muscles used CVS: S1,S2,RRR GI: soft, non tender, non distended Neuro: motor grossly intact, alert Psych: appropriate affect, appropriate insight Objective Data Active Medications Acetaminophen (Acetaminophen 325 Mg Tablet) 650 mg PO Q6H PRN PRN Reason: Pain, Mild 1-3,fever,headache Last Admin: 12/12/24 20:27 Dose: 650 mg Documented By: LUCHO Calcium Carbonate (Calcium Carbonate 750 Mg Tab.Chew) 750 mg PO Q4H PRN PRN Reason: Heartburn Enoxaparin Sodium (Enoxaparin Sodium 40 Mg/0.4 Ml Syringe) 40 mg SUBCUT Q24H [facility] Last Admin: 12/16/24 16:07 Dose: 40 mg Documented By: EDY Guaifenesin (Guaifenesin La 600 Mg Tab.Er.12h) 600 mg PO BID [facility] Last Admin: 12/17/24 08:55 Dose: 600 mg Documented By: BIRDIE Lidocaine (Lidocaine 4 % Patch Adh..Patch) 1 patch TRANSDERMA DAILY [facility]; Protocol Last Admin: 12/17/24 08:56 Dose: 1 patch Documented By: BIRDIE Loratadine (Loratadine 10 Mg Tablet) 10 mg PO DAILY PRN PRN Reason: Allergy Symptoms Magnesium Hydroxide (Milk Of Magnesia 30 Ml Oral.Susp) 30 ml PO DAILY PRN PRN Reason: Constipation Melatonin (Melatonin 3 Mg Tablet) 6 mg PO BEDTIME PRN PRN Reason: Insomnia Last Admin: 12/13/24 19:30 Dose: 6 mg Documented By: SANDRA Morphine Sulfate (Morphine Sulfate 2 Mg/Ml Cartridge) 1 mg IVPUSH Q4H PRN; Protocol PRN Reason: sob Last Admin: 12/16/24 11:58 Dose: 1 mg Documented By: EDY Ondansetron HCl (Ondansetron Hcl 4 Mg/2 Ml Vial) 4 mg IVPUSH Q6H PRN PRN Reason: Nausea Last Admin: 12/15/24 16:20 Dose: 4 mg Documented By: MARCELA Prednisone (Prednisone 20 Mg Tablet) 40 mg PO DAILY SILVINA Sodium Chloride (0.9 % Sodium Chloride Flush 3 Ml Syringe) 3 ml IVFLUSH QSHIFT SILVINA Last Admin: 12/17/24 08:58 Dose: 3 ml Documented By: RIOSCEL Labs 12/13/24 08:56 12/13/24 08:56 Assessment and Plan (1) COPD (chronic obstructive pulmonary disease): Status: Acute Plan 79M PMH COPD, htn presented with weakness,weight loss, sob, found to have suspected lung malignancy Acute hypoxic respiratory failure secondary to postobstructive pneumonia and COPD with acute decompensation completed Ceftriaxone, azithromycin, change to po Steroids, DuoNebs on room air at rest, home o2 eval for exertion Suspected lung malignancy decision made to forgo further work up, plan for home hospice Hyponatremia Labs consistent with poor solute intake stable Hypertension Lisinopril Moderate protein calorie malnutrition Due to suspected malignancy DVT prophylaxis-Lovenox Do not intubate reason for continued hospitalization: dispo plannning Quality Stroke Does the patient have a stroke diagnosis?: No VTE Prior VTE?: No VTE Risk Level:: Medical - moderate - high VTE Device Contraindication: Treatment Not Indicated VTE Drug Contraindication: N/A - Med Ordered
--- NOTE | 2024-12-17 09:53 | PM.DS ---
DS: Providers Provider Date of Service: 12/17/24 Date of admission: 12/09/24 12:23 Date of discharge: 12/17/24 Primary care physician: Alejandro Mcclendon MD Consults: 12/09/24 15:30 Consult to Pulmonology Routine Consulting Provider: [facility] Pulmonology Services Reason for consultation: ? lung mass DS: Diagnosis Discharge Diagnosis (1) COPD (chronic obstructive pulmonary disease): Status: Acute DS: Summary Hospital Course Hospital Course: from initial hpi: 79-year-old man presented to the ER complaints of worsening shortness breath. According to the patient's he has had upper respiratory symptoms for about 2 weeks and has been very weak. Patient's reports that he has been even having difficulty walking and having difficulty being able to change his clothes. She said prior to about 2-3 weeks ago patient was independent and driving. He has a history smoking but had quit smoking about 8 weeks ago for a eye procedure. On over the last 2 weeks he has been weak, tired, coughing and short of breath. He does not have a history of COPD and has not been treated for in his not on home oxygen. He denied chest pain, nausea, vomiting, diarrhea, fever, chills, recent travel, sick contacts. Chest CTA was negative for PE but did show advanced central lobular emphysema with irregular infiltrative appearing soft tissue mass centered in the right suprahilar region along with multiple irregular nodules. Patient was mildly elevated white count but no fever. He does have tachycardia which is likely chronic. Stable blood pressure, on 2 L nasal cannula satting 93%. He did receive a dose of ceftriaxone, Solu-Medrol, azithromycin, albuterol in the ER. He will be admitted for further management and treatment of likely pneumonia and lung mass. hospital course: Patient was admitted for acute hypoxic respiratory failure secondary to postobstructive pneumonia and COPD with acute decompensation. Was treated with a course of ceftriaxone and azithromycin as well as steroids. Completed course and was weaned onto room air. For suspected lung malignancy initially plan was for treatment of pneumonia follow up outpatient PET scan and biopsy. However patient and have decided to opt for home hospice on comfort measures. For hyponatremia this was consistent with poor solute intake and improved. For hypertension was continued on lisinopril but will be discontinued on discharge as focus on quality of life. For moderate protein calorie malnutrition due to malignancy encourage p.o. intake. Time Attestation Discharge Coordination Time (in mins): 37 Quality: Safe Use of Opioids Does Pt have an Active Cancer Diagnosis on the Problem List?: Yes Opioid Measure Date for [facility] Report: 11/17/24 Opioid Measure Time for [facility] Report: 09:53 Quality: Stroke Does the patient have a stroke diagnosis?: No Physical Exam Vital Signs: Vital Signs: Last Vital Signs Temp 98.3 F 12/17/24 07:01 Pulse 91 12/17/24 07:01 Resp 18 12/17/24 07:01 BP 142/75 H 12/17/24 07:01 Pulse Ox 93 12/17/24 03:08 O2 Del Method Room Air 12/17/24 07:01 O2 Flow Rate 1 12/12/24 15:37 BMI result Body Mass Index 17.6 General: AO X 3, ill, frail Resp: diminished bilateral, accessory muscles used CVS: S1,S2,RRR GI: soft, non tender, non distended Neuro: motor grossly intact, alert Psych: appropriate affect, appropriate insight Discharge Plan Discharge Anticipated Discharge Date/Time: 12/17/24 09:44 Patient Disposition: Hospice - Home Discharge Diagnosis: pna, lung cancer Referrals: Alejandro Mcclendon MD [Primary Care Provider] - 1 Week Discharge Medications: New morphine concentrate 100 mg/5 mL (20 mg/mL) solution 5 mg PO Q3H PRN (Reason: pain/comfort) 15 Days Qty: 30 0RF Rx Instructions: Partial Fill upon patient request. lorazepam 0.5 mg tablet 0.5 mg PO Q6H PRN (Reason: anxiety/restlessness) 4 Days Qty: 16 0RF lorazepam [Lorazepam Intensol] 2 mg/mL concentrate 0.5 mg PO Q4H PRN (Reason: anxiety/restlessness) Qty: 30 0RF Continued cranberry 450 mg Tablet 450 mg PO DAILY Rx Instructions: administer with a meal guaifenesin [Mucinex] 600 mg Tablet Extended Release 12hr 600 mg PO BID Zyrtec 10 mg capsule 10 mg PO DAILY PRN (Reason: Allergy Symptoms) phosphatidylserine 100 mg capsule 100 mg PO DAILY Discontinued lisinopril 5 mg tablet 5 mg PO DAILY cholecalciferol (vitamin D3) 50 mcg (2,000 unit) tablet 50 mcg PO DAILY Diet: Advance to usual diet Activity on Discharge: As tolerated Stand Alone Forms: Patient Portal Discharge page Print Language: Khmer Other Ambulatory Orders: PET CT fusion whole body (Routine) Timeframe: 1 Day Facility: [facility] - Location: PET Scan Ordered By: Stevo Lea Care Plan Goals: manage symptoms Health Concerns: presumed lung cancer/end of life care Plan of Treatment: home hospice Assessment: see above
[2024-12-17] MEDS: predniSONE 20 MG TABLET 40 MG PO (11:48)
[2024-12-17] MEDS: Benzonatate 100 MG CAPSULE PO (11:48)
--- NOTE | 2024-12-17 11:52 | MHC.CM.PN ---
Goal is dc to home tomorrow, with [facility] at 11 AM; Patient's will transport. CM will follow.
[2024-12-17 15:22] VITALS: BP 112/55; PULSE 95; RESP 18; TEMP 36.8; O2SAT 96
[2024-12-17] MEDS: Enoxaparin Sodium 40 MG/0.4 ML SYRINGE SUBCUT (16:09)
[2024-12-17 19:55] VITALS: BP 149/73; PULSE 102; RESP 16; TEMP 37; O2SAT 92
[2024-12-18] MEDS: Benzonatate 100 MG CAPSULE PO ×2 (02:28→07:54)
[2024-12-18] MEDS: Melatonin 3 MG TABLET 6 MG PO (02:28)
[2024-12-18] MEDS: Acetaminophen 325 MG TABLET 650 MG PO (02:28)
[2024-12-18 03:19] VITALS: BP 151/83; PULSE 98; RESP 18; TEMP 36; O2SAT 92
[2024-12-18 07:35] VITALS: BP 142/70; PULSE 100; RESP 18; TEMP 36.6; O2SAT 92
[2024-12-18] MEDS: Calcium Carbonate 750 MG TAB.CHEW PO (07:54)
[2024-12-18] MEDS: predniSONE 20 MG TABLET 40 MG PO (07:54)
[2024-12-18] MEDS: guaiFENesin LA 600 MG TAB.ER.12H PO (07:54)
[2024-12-18] MEDS: Lidocaine 4 % Patch ADH..PATCH 1 PATCH TRANSDERMA (07:54)
[2024-12-18] MEDS: 0.9 % Sodium Chloride Flush 3 ML SYRINGE IVFLUSH (07:55)
--- NOTE | 2024-12-18 09:36 | PM.DS ---
DS: Providers Provider Date of Service: 12/18/24 Date of admission: 12/09/24 12:23 Date of discharge: 12/18/24 Primary care physician: Alejandro Mcclendon MD Consults: 12/09/24 15:30 Consult to Pulmonology Routine Consulting Provider: [facility] [place] Pulmonology Services Reason for consultation: ? lung mass DS: Diagnosis Discharge Diagnosis (1) COPD (chronic obstructive pulmonary disease): Status: Acute DS: Summary Hospital Course Hospital Course: from initial hpi: 79-year-old man presented to the ER complaints of worsening shortness breath. According to the patient's he has had upper respiratory symptoms for about 2 weeks and has been very weak. Patient's reports that he has been even having difficulty walking and having difficulty being able to change his clothes. She said prior to about 2-3 weeks ago patient was independent and driving. He has a history smoking but had quit smoking about 8 weeks ago for a eye procedure. On over the last 2 weeks he has been weak, tired, coughing and short of breath. He does not have a history of COPD and has not been treated for in his not on home oxygen. He denied chest pain, nausea, vomiting, diarrhea, fever, chills, recent travel, sick contacts. Chest CTA was negative for PE but did show advanced central lobular emphysema with irregular infiltrative appearing soft tissue mass centered in the right suprahilar region along with multiple irregular nodules. Patient was mildly elevated white count but no fever. He does have tachycardia which is likely chronic. Stable blood pressure, on 2 L nasal cannula satting 93%. He did receive a dose of ceftriaxone, Solu-Medrol, azithromycin, albuterol in the ER. He will be admitted for further management and treatment of likely pneumonia and lung mass. hospital course: Patient was admitted for acute hypoxic respiratory failure secondary to postobstructive pneumonia and COPD with acute decompensation. Was treated with a course of ceftriaxone and azithromycin as well as steroids. Completed course and was weaned onto room air. For suspected lung malignancy initially plan was for treatment of pneumonia follow up outpatient PET scan and biopsy. However patient and have decided to opt for home hospice on comfort measures. For hyponatremia this was consistent with poor solute intake and improved. For hypertension was continued on lisinopril but will be discontinued on discharge as focus on quality of life. For moderate protein calorie malnutrition due to malignancy encourage p.o. intake. Time Attestation Discharge Coordination Time (in mins): 35 Quality: Safe Use of Opioids Does Pt have an Active Cancer Diagnosis on the Problem List?: No Quality: Stroke Does the patient have a stroke diagnosis?: No Physical Exam Vital Signs: Vital Signs: Last Vital Signs Temp 97.9 F 12/18/24 07:35 Pulse 100 12/18/24 07:35 Resp 18 12/18/24 07:35 BP 142/70 H 12/18/24 07:35 Pulse Ox 92 12/18/24 07:35 O2 Del Method Room Air 12/18/24 07:35 O2 Flow Rate 1 12/12/24 15:37 BMI result Body Mass Index 17.6 General: AO X 3, ill, frail Resp: diminished bilateral, accessory muscles used CVS: S1,S2,RRR GI: soft, non tender, non distended Neuro: motor grossly intact, alert Psych: appropriate affect, appropriate insight Discharge Plan Discharge Anticipated Discharge Date/Time: 12/18/24 09:35 Patient Disposition: Hospice - Home Discharge Diagnosis: pna, lung cancer Referrals: [facility] [Outside] - 1 Week Alejandro Mcclendon MD [Primary Care Provider] - 1 Week Discharge Medications: New morphine concentrate 100 mg/5 mL (20 mg/mL) solution 5 mg PO Q3H PRN (Reason: pain/comfort) 15 Days Qty: 30 0RF Rx Instructions: Partial Fill upon patient request. lorazepam 0.5 mg tablet 0.5 mg PO Q6H PRN (Reason: anxiety/restlessness) 4 Days Qty: 16 0RF lorazepam [Lorazepam Intensol] 2 mg/mL concentrate 0.5 mg PO Q4H PRN (Reason: anxiety/restlessness) Qty: 30 0RF Continued cranberry 450 mg Tablet 450 mg PO DAILY Rx Instructions: administer with a meal guaifenesin [Mucinex] 600 mg Tablet Extended Release 12hr 600 mg PO BID Zyrtec 10 mg capsule 10 mg PO DAILY PRN (Reason: Allergy Symptoms) phosphatidylserine 100 mg capsule 100 mg PO DAILY Discontinued lisinopril 5 mg tablet 5 mg PO DAILY cholecalciferol (vitamin D3) 50 mcg (2,000 unit) tablet 50 mcg PO DAILY Discharge Orders: Discharge Order (Routine); Ordered 12/18/24 Ordered By: Charli Kelly Diet: Advance to usual diet Activity on Discharge: As tolerated Stand Alone Forms: Patient Portal Discharge page Print Language: Peruvian Other Ambulatory Orders: PET CT fusion whole body (Routine) Timeframe: 1 Day Facility: [facility] - Location: PET Scan Ordered By: Stevo Lea Care Plan Goals: manage symptoms Health Concerns: presumed lung cancer/end of life care Plan of Treatment: home hospice Assessment: see above
--- NOTE | 2024-12-18 11:14 | MHC.CM.PN ---
Patient is discharged today to home with [facility]. His is provide transportation home.
== END 2024-12-18 14:14 | disposition hospice, home (50) | DRG 193 ==
LOC: HO.ED 12:16 → HO.EDOVER 13:33 → HO.IMC 19:34
PROVIDERS: Internal Medicine; Nurse Practitioner Acute Care; Physician Assistant Medical; Admitting Provider Internal Medicine; Emergency Provider Emergency Medicine; PCP Internal Medicine; Visit Provider Internal Medicine
DX: J18.9 Pneumonia, unspecified organism (principal); J96.01 Acute respiratory failure with hypoxia; E87.1 Hypo-osmolality and hyponatremia; C34.11 Malignant neoplasm of upper lobe, right bronchus or lung; E44.0 Moderate protein-calorie malnutrition; Z68.1 Body mass index [BMI] 19.9 or less, adult; J43.2 Centrilobular emphysema; Z51.5 Encounter for palliative care; E86.0 Dehydration; D64.9 Anemia, unspecified; Z20.822 Contact with and (suspected) exposure to COVID-19; Z87.891 Personal history of nicotine dependence; Z79.899 Other long term (current) drug therapy
CPT/HCPCS: 0241U; 36415; 71046; 71275; 80048; 80076; 82436; 82803; 83605; 83735; 83880; 83930; 83935; 84133; 84300; 84484; 85025; 85027; 87040; 93005; 93306; 94640; 99212; 99285; J0456; J0696; J1650; J2270; J2405; J2919; J7120; Q9957; Q9967

== ENCOUNTER → 2024-12-09 10:27 | Outpatient (BNV) | payer MEDICARE, SELFPAY | PROVIDERS: Admitting Provider Internal Medicine; Emergency Provider Emergency Medicine; PCP Internal Medicine; Visit Provider Internal Medicine | DX: R00.0 Tachycardia, unspecified (principal) | CPT/HCPCS: 93010 ==

== ENCOUNTER → 2024-12-09 10:28 | Outpatient (BNV) | payer MEDICARE, SELFPAY | PROVIDERS: PCP Internal Medicine; Visit Provider Radiology Diagnostic Radiology | DX: J43.2 Centrilobular emphysema (principal); R91.8 Other nonspecific abnormal finding of lung field; J44.9 Chronic obstructive pulmonary disease, unspecified; J43.9 Emphysema, unspecified; J84.89 Other specified interstitial pulmonary diseases | CPT/HCPCS: 71275 ==

== ENCOUNTER 2024-12-09 12:23 | Outpatient (BNV) | payer MEDICARE, SELFPAY | END 2024-12-10 07:00 | PROVIDERS: Admitting Provider Internal Medicine; Emergency Provider Emergency Medicine; PCP Internal Medicine; Visit Provider Internal Medicine | DX: I42.2 Other hypertrophic cardiomyopathy (principal); I35.0 Nonrheumatic aortic (valve) stenosis; I34.0 Nonrheumatic mitral (valve) insufficiency | CPT/HCPCS: 93306 ==

== ENCOUNTER → 2024-12-09 12:23 | Outpatient (BNV) | payer MEDICARE, SELFPAY | PROVIDERS: Admitting Provider Internal Medicine; Emergency Provider Emergency Medicine; PCP Internal Medicine; Visit Provider Internal Medicine | DX: J44.9 Chronic obstructive pulmonary disease, unspecified (principal) | CPT/HCPCS: 99223; 99231; 99232; 99233; 99497 ==

== ENCOUNTER → 2024-12-09 12:23 | Outpatient (BNV) | payer MEDICARE, SELFPAY | PROVIDERS: Admitting Provider Internal Medicine; Emergency Provider Emergency Medicine; PCP Internal Medicine; Visit Provider Hospitalist | DX: J18.9 Pneumonia, unspecified organism (principal); E87.1 Hypo-osmolality and hyponatremia; J44.9 Chronic obstructive pulmonary disease, unspecified; R91.8 Other nonspecific abnormal finding of lung field; R59.0 Localized enlarged lymph nodes | CPT/HCPCS: 99223 ==